=== PATIENT | female | born 1960 | race Caucasian/White ===

== ENCOUNTER 2018-10-19 12:56 | Emergency (ER) | payer MEDICARE ==
[~2018-10-19 12:56] MED LIST: ISOVUE-370 76%-LOCM 1 ML ONE
[2018-10-19] MEDS ORDERED: Metoclopramide HCl 10 MG/2 ML VIAL ONE (13:27)
[2018-10-19 13:53] LABS: Hemoglobin 13.7 g/dL (12.0-16.0); Mean Corpuscular HGB CONC 34.1 g/dL (32.0-36.0); Mean Corpuscular Hemoglobin 34.5 pg (27.0-31.0); Mean Platelet Volume 7.7 fL (7.4-10.4); Platelet Count 170 thou/uL (130-400); RBC Distribution Width 12.1 % (11.5-14.5); Red Blood Cell (RBC) Count 3.97 mill/uL (4.20-5.40); White Blood Cell (WBC) Count 6.2 thou/uL (4.8-10.8)
[2018-10-19 14:07] LABS: ALT (SGPT) 133 U/L (8-55); AST (SGOT) 218 U/L (5-34); Albumin 3.9 g/dL (3.5-5.0); Alkaline Phosphatase 205 U/L (40-150); Anion Gap 9 mmol/L (10-20); BUN (Urea Nitrogen) 14 mg/dL (9.8-20.1); Bilirubin, Total 0.3 mg/dL (0.2-1.2); Calc. Creatinine Clearance 0 mL/min (70-130); Calcium 9.3 mg/dL (7.8-10.44); Carbon Dioxide 26 mmol/L (22-29); Chloride 110 mmol/L (98-107); Estimated GFR-MDRD 53; Globulin 2.8 g/dL (2.4-3.5); Glucose 89 mg/dL (70-105); Potassium 4.1 mmol/L (3.5-5.1); Protein, Total 6.7 g/dL (6.0-8.3); Sodium 141 mmol/L (136-145)
[2018-10-19 14:11] LABS: Band 1 % (5-11); Eosinophils 1 % (0-10); Lymphocytes 40 % (21-51); MDiff Complete? YES; Monocytes 4 % (0-10); Neutrophil 53 % (42-75); Platelet Morphology Comment Appears Adequate; RBC Morphology Normal
[2018-10-19 14:14] LABS: Acetaminophen Less than 6.0 mcg/mL (10.0-30.0); Alcohol Less than 10 mg/dL (Less than 10); Salicylate Less than 8.0 mg/dL (15.0-30.0)
[2018-10-19 14:39] LABS: Amphetamine Not Detected (NotDetected); Barbiturates Screen Not Detected (NotDetected); Benzodiazepine Screen Detected (NotDetected); Cocaine Metabolite Screen Not Detected (NotDetected); Medtox Control Line Valid? VALID (VALID); Medtox Reader # READER 4; Methadone Not Detected (NotDetected); Methamphetamine Not Detected (NotDetected); Opiate Screen Detected (NotDetected); Oxycodone Screen Not Detected (NotDetected); Phencyclidine (PCP) Not Detected (NotDetected); THC/Cannabinoid Screen Not Detected (NotDetected); Tricyclic Screen Not Detected (NotDetected)
--- NOTE | 2018-10-19 14:52 | CT ---
CT CERVICAL SPINE NONCONTRAST: DATE: 10/19/2018 HISTORY: cervical trauma FINDINGS: There are no jumped or perched facets. There is no evidence of acute fracture. The vertebral body hei ghts are maintained. There is no prevertebral soft tissue swelling. There are degenerative disc changes and facet osteoarthrosis. 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 Also multilevel high-grade bilateral neural foraminal stenosis, including severe. IMPRESSION: 1) Cervical spondylosis. 2) no evidence of acute fracture or acute traumatic subluxation.
--- NOTE | 2018-10-19 14:55 | CT ---
CT BRAIN WITHOUT IV CONTRAST: HISTORY: Injury following syncope/collapse. Headache. COMPARISON: 10/17/2018 FINDINGS: No focal mass or midline shift. No intraaxial or extraaxial hemorrhage. The sinuses and mastoids ar e clear of acute process. IMPRESSION: No significant acute intracranial process. POS: OFF
--- NOTE | 2018-10-19 15:08 | CT ---
CT angiogram thorax with contrast: (CTA pulmonary angiogram) HISTORY: 58-year-old female status post syncope and collapse TECHNIQUE: IV injection of iodinated contrast. Scan acquisition timing attempted to coincide with iodinated contrast bolus reaching maximal density in pulmonary arteries. 3-D MIP reconstructions. FINDINGS: No pulmonary thromboembolism. No thoracic aortic aneurysm or dissection. Approximately 20-30% of the stomach has herniated into the mediastinum. No pleural effusion or pneumothorax. Prominent interstitial markings diffusely. Numerous scattered tiny subpleural blebs. Moderate cluster of air cysts/blebs in the lateral aspect of right upper lobe. Nonspecific groundglass changes in the dependent, posterior aspects of the superior segments of bilat eral lower lobes, left greater than right, and to a lesser degree at posterior dependent aspects of bilateral upper lobes. IMPRESSION: 1. No pulmonary thromboembolism. 2. Nonspecific diffuse changes of the lungs, at least some of which are chronic, including probable p araseptal emphysema.
[2018-10-19] MEDS ORDERED: Magnesium 2 GM/50 ML BAG (IN WATER) ONE (15:09)
[2018-10-19] MEDS ORDERED: methylPREDNISolone Sod Succ/PF 125 MG/2 ML VIAL ONE (15:09)
[2018-10-19] MEDS ORDERED: Lorazepam 1 MG TAB PO SCH (15:30)
[2018-10-19] MEDS ORDERED: Lorazepam 2 MG/ML VIAL ONE (16:04)
[2018-10-19] MEDS ORDERED: Lorazepam 1 MG TAB ONE (16:06)
[2018-10-19] MEDS ORDERED: diphenhydrAMINE 50 MG/ML VIAL IVP SCH (16:15)
[2018-10-19] MEDS ORDERED: SODIUM CHLORIDE 0.9% IVPB SCH (16:15)
[2018-10-19] MEDS ORDERED: VALPROATE SODIUM IVPB SCH (16:15)
== END 2018-10-19 16:38 | disposition home or self-care (01) ==
LOC: ERS 12:56
DX: S06.0X9A Concussion with loss of consciousness of unspecified duration, initial encounter (principal); R55 Syncope and collapse; F41.9 Anxiety disorder, unspecified; F17.210 Nicotine dependence, cigarettes, uncomplicated; G43.909 Migraine, unspecified, not intractable, without status migrainosus; W19.XXXA Unspecified fall, initial encounter
CPT/HCPCS: 36415; 70450; 71275; 72125; 80053; 80306; 80307; 84484; 85025; 85379; 93005; 94760; 96365; 96367; 96375; J2060; J2765; J2930; J3475; J3490; Q9966

== ENCOUNTER 2020-04-23 12:22 | Inpatient (IN) | payer MEDICARE ==
[~2020-04-23 12:22] MED LIST changes: +Calcium Chloride 1 GM/10 ML Abboject SYRINGE ONE; -ISOVUE-370 76%-LOCM 1 ML ONE; +Lidocaine 1% PF 5 ML VIAL ONE; +PHENYLEPHRINE-NS 100 MCG/ML 10 ML SYRINGE ONE; +PROPOFOL 200 MG/20 ML VIAL ONE; +ePHEDrine 50 MG/ML VIAL ONE
[2020-04-23] MEDS ORDERED: Fentanyl 100 MCG/2 ML VIAL ONE ×4 (12:38→21:48)
[2020-04-23] MEDS ORDERED: Nicotine 14 MG PATCH ONE (12:38)
[2020-04-23 13:17] LABS: INR-International Normal Ratio 0.9; PTT 29.2 sec (22.9-36.1); Prothrombin Time 12.2 sec (12.0-14.7)
--- NOTE | 2020-04-23 13:17 | RAD ---
EXAM: Single view of the chest HISTORY: Preoperative radiograph with finger infection COMPARISON: 03/22/2012 FINDINGS: Single view of the chest shows a normal sized cardiomediastinal silhouette. Slight increas ed interstitial lung markings are seen in the lung bases. There is no evidence of consolidation, mass, or pleural effusion. No acute osseous abnormality. IMPRESSION: No evidence of acute cardiopulmonary disease
[2020-04-23] MEDS ORDERED: Boostrix 0.5 ML (Tdap) VIAL ONE (13:35)
[2020-04-23 16:07] LABS: SARS-CoV-2 NAA Rapid Test Not Detected (NotDetected)
[2020-04-23] MEDS ORDERED: Morphine 4 MG/ML VIAL SLOW IVP PRN (16:07)
[2020-04-23 16:10] VITALS: BMI 33.6
[2020-04-23] MEDS ORDERED: Ondansetron PF 4 MG/2 ML Vial IVP PRN (16:15)
[2020-04-23] MEDS ORDERED: D5 1/2 NS w/20 mEq KCL 1,000 ML IV SCH (16:15)
[2020-04-23] MEDS ORDERED: Ondansetron ODT 4 MG TAB SL PRN (16:15)
[2020-04-23] MEDS ORDERED: Meperidine HCl/PF 25 MG/ML VIAL IM PRN (17:29)
[2020-04-23] MEDS ORDERED: Promethazine HCl 25 MG/ML VIAL IM PRN (17:30)
[2020-04-23] MEDS: Morphine 2 MG/ML VIAL SLOW IVP PRN (17:55)
[2020-04-23] MEDS ORDERED: Sodium Chloride 0.9% 30 ML ONE (19:16)
[2020-04-23] MEDS ORDERED: Bupivacaine PF 0.5% 30 ML VIAL ONE (19:16)
[2020-04-23] MEDS ORDERED: Bacitracin Zinc Ointment 30 gm TUBE ONE (19:16)
[2020-04-23] MEDS ORDERED: Thrombin 5000 UNITS/5 ML VIAL ONE (20:52)
[2020-04-23] MEDS ORDERED: Milk Of Magnesia 30 ML UDCUP PO PRN (21:33)
[2020-04-23] MEDS ORDERED: Acetaminophen 325 MG TAB PO PRN (21:33)
[2020-04-23] MEDS ORDERED: HYDROcodone/Acetaminophen 5/325 mg Tablet PO PRN (21:33)
[2020-04-23] MEDS ORDERED: Ondansetron PF 4 MG/2 ML Vial SLOW IVP PRN (21:33)
[2020-04-23] MEDS ORDERED: traMADol HCl 50 MG TAB PO PRN (21:33)
[2020-04-23] MEDS ORDERED: Communication Order-Pharmacy FS SCH (21:45)
[2020-04-23] MEDS ORDERED: TETANUS AND DIPHTHERIA TOX/PF 0.5 ML DISP.SYRIN IM SCH (21:45)
[2020-04-23] MEDS: Ampicillin/Sulbactam 3 GM in Sodium Chloride 0.9% 100 ML IVPB SCH (22:48)
[2020-04-24] MEDS: Morphine 2 MG/ML VIAL SLOW IVP PRN (01:26)
--- NOTE | 2020-04-24 02:30 | OP ---
DATE OF PROCEDURE: 04/23/2020 PREOPERATIVE DIAGNOSES: Parrot bite abscess with necrosis, left middle finger involving all layers of the skin and subcutaneous fat down to but not including bone, joint, and extensor mechanism. POSTOPERATIVE DIAGNOSES: Parrot bite abscess with necrosis, left middle finger involving all layers of the skin and subcutaneous fat down to but not including bone, joint, and extensor mechanism. PROCEDURE PERFORMED: Debridement of necrotic wound, left middle finger. SPECIMEN: Yes; mycobacterium avium culture, mycobacterial stain, and aerobic and anaerobic culture. ESTIMATED BLOOD LOSS: 10 mL. TOURNIQUET TIME: 15 minutes. FINDINGS: The entire area of the abscess had completely destroyed the skin left it with boggy subcutaneous fat, which had to be from the extensor mechanism, which had its paratenon involved and the abscess cavities deepest level. INDICATION: The patient reports she was scratched by her own parrot approximately four days prior because she was involved in a parrot flight instruction with her own parrot. DESCRIPTION OF PROCEDURE: After successful general LMA technique, the limb was prepped and draped. I gave her 10 mL of 0.5% Marcaine block prior to inflated tourniquet and exsanguinated the limb. We then outlined an area, where she had just mosley white mucopurulent skin subcutaneous tissue and fat some slightly irritated, but it is still intact to the lysed skin and made a Aspen-type incision at this point. We had to go approximately 1 cm proximal to the erythema as to localize the junction of the involved fat and the abscess and the normal extensor mechanism. Once we had done this proximally, we then used a Baraga blade to dissect the abscess cavity off the extensor mechanism and this paratenon was intact. No evidence of joint involvement clinically before in the operating room or so. Once we completely debrided this layer using combination of tenotomy scissors and Baraga blade in an excisional technique and went down, but did not the joint, we lifted all the tissue out, trimmed her remaining radial and ulnar dorsal skin edge of all inflamed boggy fat and then released the tourniquet. All tissue was bleeding. We then irrigated with 3 L normal saline and Pulsavac pressure, used thrombin-soaked Gelfoam, obtained hemostasis, afterwards we placed her in a wet-to-dry dressing over the thrombin-soaked Gelfoam with Kerlix and appropriate Coban tape. She had excellent pink circulation afterwards. Job ID: [id number]
[2020-04-24] MEDS: Morphine 4 MG/ML VIAL SLOW IVP PRN ×3 (08:08→16:09)
[2020-04-24] MEDS ORDERED: Aspirin 81 mg Enteric Coated Tablet PO SCH (09:00)
[2020-04-24] MEDS: Ampicillin/Sulbactam 3 GM in Sodium Chloride 0.9% 100 ML IVPB SCH (09:59)
[2020-04-24 16:16] VITALS: BP 121/87; TEMP 97.9
== END 2020-04-24 18:17 | disposition home or self-care (01) | DRG 580 ==
LOC: ERS 12:22 → T4-A 12:55
PROVIDERS: ADMIT Orthopaedic Surgery Hand Surgery; ATTEND Orthopaedic Surgery Hand Surgery
PROC: 0JBK0ZZ Excision of Left Hand Subcutaneous Tissue and Fascia, Open Approach (ICD-10-PCS; principal; 2020-04-23)
DX: L02.512 Cutaneous abscess of left hand (principal); I96 Gangrene, not elsewhere classified; Z20.828 Contact with and (suspected) exposure to other viral communicable diseases; I10 Essential (primary) hypertension; J44.9 Chronic obstructive pulmonary disease, unspecified; G40.909 Epilepsy, unspecified, not intractable, without status epilepticus; F17.210 Nicotine dependence, cigarettes, uncomplicated; Z79.899 Other long term (current) drug therapy
CPT/HCPCS: 36415; 71045; 85610; 85652; 85730; 86140; 87070; 87116; 87205; 87206; 90471; 90715; 93005; 96374; J0295; J0744; J2270; J2704; J3010; J3480; J3490; S0020; U0002

== ENCOUNTER 2020-05-01 11:55 | Outpatient (CLI) | payer MEDICARE ==
[2020-05-02 03:10] LABS: SARS-CoV-2 MS2 Positive; SARS-CoV-2 N Gene Negative; SARS-CoV-2 S Gene Negative; SARS-CoV-2 by NAA Not Detected (NotDetected); SARS-CoV-2 orf1ab Negative
== END 2020-05-01 11:56 | disposition home or self-care (01) ==
LOC: LABBT 11:55
PROVIDERS: ATTEND Emergency Medicine
DX: Z01.812 Encounter for preprocedural laboratory examination (principal); L02.511 Cutaneous abscess of right hand; Z20.828 Contact with and (suspected) exposure to other viral communicable diseases
CPT/HCPCS: 87635; U0003

== ENCOUNTER 2020-05-03 13:51 | Day surgery (SDC) | payer MEDICARE ==
[2020-05-02 11:01] VITALS: BMI 31.8
[~2020-05-03 13:51] MED LIST changes: -Calcium Chloride 1 GM/10 ML Abboject SYRINGE ONE; +Dexamethasone 20 MG/5 ML VIAL ONE; +Ondansetron PF 4 MG/2 ML Vial ONE; -ePHEDrine 50 MG/ML VIAL ONE
[2020-05-03] MEDS ORDERED: Fentanyl 100 MCG/2 ML VIAL ONE ×2 (17:47→19:34)
[2020-05-03] MEDS ORDERED: Midazolam HCl 2 mg/2 ml Vial ONE (17:47)
[2020-05-03] MEDS ORDERED: Bupivacaine PF 0.5% 30 ML VIAL ONE (17:49)
[2020-05-03] MEDS ORDERED: Sodium Chloride 0.9% 10 ML ONE (17:50)
[2020-05-03] MEDS ORDERED: Bacitracin Zinc Ointment 30 gm TUBE ONE (17:50)
[2020-05-03] MEDS ORDERED: Mineral Oil Sterile 10ML 10 ML UDCUP ONE ×2 (17:58→18:58)
[2020-05-03] MEDS ORDERED: Thrombin 5000 UNITS/5 ML VIAL ONE (18:51)
[2020-05-03] MEDS ORDERED: HYDROcodone/Acetaminophen 5/325 mg Tablet ONE (19:53)
--- NOTE | 2020-05-06 14:36 | OP ---
DATE OF PROCEDURE: 05/03/2020 PREOPERATIVE DIAGNOSIS: Right middle finger x 2.0 cm wound. POSTOPERATIVE DIAGNOSIS: Right middle finger x 2.0 cm wound. PROCEDURE PERFORMED: Debridement of wound down to including the fascia, intermediate depth 2.5 cm, right middle finger full-thickness skin graft from the right thigh. FINDINGS: Paratenon intact over the 1 cm long area of exposed tendon. Remaining was all fat and granulation tissue. COMPLICATIONS: None. INDICATIONS: Patient returned for staged wound management, now right middle finger wound has had VAC dressings, now prepared with cover portion of the tendon having for graft. DESCRIPTION OF PROCEDURE: After successful general endotracheal anesthesia, the limb prepped and draped. She received augmentation with right middle finger block, first 10 mL of 0.5% Marcaine pre-incision and then after the graft, another 10 mL at the same site. We then irrigated the wound, debrided the wound edges and the skin from the subcutaneous tissue. The paratenon was intact over the extensor mechanisms. Thus, we felt the skin graft would heal. We placed a moist dressing here, went to the ipsilateral right thigh. I harvested a 6 x 2 cm split-thickness skin graft, then meshed it to be of the appropriate size to cover this wound. A total of 30 mL was given including the donor site of Marcaine for pain relief. The graft was meshed 1 to 1.5, then placed over the wound area in excellent fashion with jeovany, a bolster, bacitracin Adaptic, 4x4s, and mineral oil, and then a bulky dressing was applied. The patient then left the operating room without evidence of anesthetic or operative complication. Job ID: [id number]
== END 2020-05-03 20:30 | disposition home or self-care (01) ==
LOC: SDC 13:51
PROVIDERS: ATTEND Orthopaedic Surgery Hand Surgery
PROC: 0HXFXZZ Transfer Right Hand Skin, External Approach (ICD-10-PCS; principal; 2020-05-03)
DX: S61.252A Open bite of right middle finger without damage to nail, initial encounter (principal); L02.511 Cutaneous abscess of right hand; Z79.2 Long term (current) use of antibiotics; Z79.899 Other long term (current) drug therapy; Z88.6 Allergy status to analgesic agent; W61.01XA Bitten by parrot, initial encounter
CPT/HCPCS: J0690; J1100; J2250; J2405; J2704; J3010; J3490; S0020

== ENCOUNTER 2020-06-11 08:07 | Outpatient (CLI) | payer MEDICARE ==
[2020-06-11 11:32] LABS: Bilirubin Neg (Negative); Blood, Urine Negative (Negative); Clarity Clear (Clear); Glucose, Urine (Dipstick) Normal (Negative); Ketone, Urine Negative (Negative); Leukocyte Negative (Negative); Nitrite Negative (Negative); Protein, Urine (Dipstick) Negative (Neg-Trace); Specific Gravity, Urine 1.015 (1.002-1.036); Urobilinogen Normal mg/dL (Less than 2)
[2020-06-11 11:34] LABS: #Basophils 0.1 10x3/uL (0.0-0.2); #Eosinphils 0.2 10x3/uL (0.0-0.5); #Monocytes 0.5 10x3/uL (0.0-1.1); #Neutrophils 4.3 10x3/uL (1.5-8.4); %Basophils 0.7 % (0.0-2.0); %Eosinophils 1.9 % (0.0-6.0); %Lymphocytes 39.8 % (18.0-47.0); %Monocytes 6.2 % (0.0-10.0); %Neutrophils 51.2 % (40.0-75.0); Mean Corpuscular Hemoglobin 33.5 PG (27.0-33.0); Mean Corpuscular Volume 104.8 fl (80.0-100.0); Platelet Count 193 10x3/uL (130-400); RBC Distribution Width 13.2 % (11.5-14.5); Red Blood Cell (RBC) Count 4.18 10x6/uL (3.90-5.20); White Blood Cell (WBC) Count 8.4 10x3/uL (4.5-11.0)
[2020-06-11 12:13] LABS: Bacteria/HPF Rare-Few HPF (None Seen); RBC/HPF 0-3 HPF (0-3); WBC/HPF 0-3 HPF (0-3)
[2020-06-12 07:20] LABS: SARS-CoV-2 MS2 Positive; SARS-CoV-2 N Gene Negative; SARS-CoV-2 S Gene Negative; SARS-CoV-2 by NAA Not Detected (NotDetected); SARS-CoV-2 orf1ab Negative
== END 2020-06-11 08:08 | disposition home or self-care (01) ==
LOC: LABBT 08:07
PROVIDERS: ATTEND Orthopaedic Surgery Hand Surgery
DX: Z01.818 Encounter for other preprocedural examination (principal); L02.511 Cutaneous abscess of right hand; Z20.822 Contact with and (suspected) exposure to COVID-19
CPT/HCPCS: 81001; 85025; 93005; U0003; 87635; 93010

== ENCOUNTER 2020-06-14 08:02 | Day surgery (SDC) | payer MEDICARE ==
[2020-06-12 11:38] VITALS: BMI 31.8
[2020-06-14] MEDS ORDERED: Ketorolac Tromethamine 30 MG/ML VIAL ONE (09:04)
[2020-06-14] MEDS ORDERED: Lidocaine 1% PF 5 ML VIAL ONE (09:04)
[2020-06-14] MEDS ORDERED: PHENYLEPHRINE-NS 100 MCG/ML 10 ML SYRINGE ONE ×2 (09:04→12:08)
[2020-06-14] MEDS ORDERED: PROPOFOL 200 MG/20 ML VIAL ONE (09:04)
[2020-06-14] MEDS ORDERED: ePHEDrine 50 MG/ML VIAL ONE (09:04)
[2020-06-14] MEDS ORDERED: Dexamethasone 20 MG/5 ML VIAL ONE (09:04)
[2020-06-14] MEDS ORDERED: Ondansetron PF 4 MG/2 ML Vial ONE ×2 (09:04→12:43)
[2020-06-14] MEDS ORDERED: Bupivacaine PF 0.5% 30 ML VIAL ONE (10:46)
[2020-06-14] MEDS ORDERED: Bacitracin Zinc Ointment 30 gm TUBE ONE (10:47)
[2020-06-14] MEDS ORDERED: Sodium Chloride 0.9% 0 ML ONE (10:47)
[2020-06-14] MEDS ORDERED: Fentanyl 100 MCG/2 ML VIAL ONE ×4 (10:57→13:18)
[2020-06-14] MEDS ORDERED: Phenylephrine 1% Nasal Spray 15 ML BOT ONE (12:07)
[2020-06-14] MEDS ORDERED: Phenylephrine 0.25% Nasal Spray 15 ML BOT ONE (12:08)
--- NOTE | 2020-06-17 06:39 | OP ---
DATE OF PROCEDURE: 06/14/2020 PREOPERATIVE DIAGNOSIS: Right hand nonhealing wound distal aspect of the proximal phalanx dorsal right middle finger all way to the level of the insertion of the extensor mechanism. FINDINGS: Exposed tendon over 2/3 of this area. No gross infection. PROCEDURES PERFORMED: 1. Debridement of wound down to depth. 2. Application of 2 x 1 cm Integra graft, right middle finger distal proximal phalanx and PIP joint dorsally. TOURNIQUET TIME: 4 minutes. ESTIMATED BLOOD LOSS: Less than 5 mL. INTEGRA GRAFT APPLIED: Yes. INDICATIONS FOR PROCEDURE: The patient with open wound where we attempted to get it to heal with skin graft alone and after infection. Skin graft allowed almost half to heal, but we felt that the remaining portion did not heal might be because it was exposed tendon underneath. This was indeed the fact. INJECTABLE: 20 mL of 0.5% Marcaine, 10 given before the graft and placing 10 after. DESCRIPTION OF PROCEDURE: After successful anesthesia listed above, general LMA technique, the patient had 10 mL of 0.5% Marcaine block given after prep and draping. We waited 5 minutes and then began with an exsanguination of limb and inflated the tourniquet to 250 mmHg pressure. 360 degree circumferential unroofing revealed the patient had some remnants of sagittal bands and had the extensor tendon, but there was no coverage. No gross infection was seen. We debrided to include using Rome blade, tenotomy scissors, Adson, and hemostats. After irrigation, the tourniquet was deflated and there was excellent flow, but again the tendon was exposed, so we applied Integra graft made to make the 2 cm long x 1.5 cm wide incision covered completely with Integra and and it was placed on with small jeovany with the finger in full extension at the PIP joint and then this was the position it was held intact. We then obtained hemostasis, placed a bacitracin Adaptic, then bacitracin alone over this and placing then a Kerlix and Coban environment. The patient left the operating room without evidence of anesthetic or operative complication. Job ID: [id number]
== END 2020-06-14 15:00 | disposition home or self-care (01) ==
LOC: SDC 08:02
PROVIDERS: ATTEND Orthopaedic Surgery Hand Surgery
PROC: 0JBJ0ZZ Excision of Right Hand Subcutaneous Tissue and Fascia, Open Approach (ICD-10-PCS; principal; 2020-06-14)
PROC: 0HRFX74 Replacement of Right Hand Skin with Autologous Tissue Substitute, Partial Thickness, External Approach (ICD-10-PCS; 2020-06-14)
DX: S61.252A Open bite of right middle finger without damage to nail, initial encounter (principal); E78.00 Pure hypercholesterolemia, unspecified; I10 Essential (primary) hypertension; M81.0 Age-related osteoporosis without current pathological fracture; M19.90 Unspecified osteoarthritis, unspecified site; F17.200 Nicotine dependence, unspecified, uncomplicated; Z79.899 Other long term (current) drug therapy; Z88.6 Allergy status to analgesic agent; Z88.8 Allergy status to other drugs, medicaments and biological substances; W61.01XA Bitten by parrot, initial encounter
CPT/HCPCS: 11043; 15120; C9363; J0690; J1100; J1885; J2405; J2704; J3010; J3490; S0020

== ENCOUNTER 2020-07-08 10:50 | Outpatient (CLI) | payer MEDICARE ==
--- NOTE | 2020-07-08 12:57 | CT ---
EXAM: CT chest without contrast per low-dose cancer screening protocol HISTORY: History of smoking and nicotine dependence. Current smoker for 50 years COMPARISON: CTA chest 10/19/2018 TECHNIQUE: Multiple contiguous axial images were obtained in a CT of the chest without contrast per l ow-dose cancer screening protocol. Sagittal and coronal reformats were performed. FINDINGS: Pulmonary nodules: No suspicious pulmonary nodules are seen. No focal infiltrates are seen. Emphysema tous changes are seen in the lungs. Pleural space: No pneumothorax or pleural effusion are seen. Heart: The heart is normal in size. Mediastinum: No hilar or mediastinal lymphadenopathy appreciated on this limited noncontrast examinat ion. There is a large hiatal hernia. Bones: No acute abnormality. Visualized subdiaphragmatic structures: The patient is status post cholecystectomy.. IMPRESSION: 1. Lung RADS category 1-negative. 2. Large hiatal hernia
== END 2020-07-08 10:51 | disposition home or self-care (01) ==
LOC: BICCT 10:50
PROVIDERS: ATTEND Internal Medicine Hematology & Oncology
DX: Z12.2 Encounter for screening for malignant neoplasm of respiratory organs (principal); F17.218 Nicotine dependence, cigarettes, with other nicotine-induced disorders; K44.9 Diaphragmatic hernia without obstruction or gangrene
CPT/HCPCS: 71271

== ENCOUNTER 2020-07-19 07:30 | Day surgery (SDC) | payer MEDICARE ==
[2020-07-18 10:35] VITALS: BMI 30.9
[2020-07-19] MEDS ORDERED: PHENYLEPHRINE-NS 100 MCG/ML 10 ML SYRINGE ONE (09:26)
[2020-07-19] MEDS ORDERED: Lidocaine 1% PF 5 ML VIAL ONE (09:26)
[2020-07-19] MEDS ORDERED: Ondansetron PF 4 MG/2 ML Vial ONE (09:26)
[2020-07-19] MEDS ORDERED: PROPOFOL 200 MG/20 ML VIAL ONE (09:26)
[2020-07-19] MEDS ORDERED: Dexamethasone 20 MG/5 ML VIAL ONE (09:26)
--- NOTE | 2020-07-19 09:47 | NM ---
Exam: Nuclear medicine lymphoscintigraphy HISTORY: Right breast cancer TECHNIQUE: Patient administered 0.416 mm of technetium 99m filtered sulfur colloid subcutaneously. FINDINGS: On the one-hour delayed images, there appears to be focal uptake of radiotracer in the right axilla, likely representing a sentinel lymph node. Focal uptake is best appreciated lateral projection. IMPRESSION: Right axillary sentinel lymph node
[2020-07-19] MEDS ORDERED: Fentanyl 100 MCG/2 ML VIAL ONE ×3 (11:20→14:52)
[2020-07-19] MEDS ORDERED: XYLOCAINE 2%-EPI 1:100,000 20 ML VIAL ONE (11:43)
[2020-07-19] MEDS ORDERED: Bupivacaine 0.25% HCL 30 ML VIAL ONE (11:43)
[2020-07-19] MEDS ORDERED: Isosulfan Blue 50 MG/5 ML VIAL ONE (11:43)
[2020-07-19] MEDS ORDERED: Phenylephrine 10 MG/ML VIAL ONE ×2 (12:48→13:49)
--- NOTE | 2020-07-20 18:06 | OP ---
DATE OF PROCEDURE: 07/19/2020 PREOPERATIVE DIAGNOSIS: Right breast cancer. POSTOPERATIVE DIAGNOSIS: Right breast cancer. OPERATION PERFORMED: Right breast ultrasound-guided needle localization, needle-localized lumpectomy, right axillary sentinel lymph node mapping and biopsy. ANESTHESIA: General endotracheal. INDICATIONS: The patient is a 60-year-old female. She has a palpable malignancy in the upper right breast at about the 11:30 radian. After discussing options with her, she has elected to pursue breast conserving surgery. DESCRIPTION OF OPERATION: Informed consent was obtained. The patient underwent preoperative lymphoscintigraphy, which documented right axillary sentinel lymph nodes. She was taken to the operating room, where general anesthesia was obtained with the patient in supine position. Right breast and axilla were prepped with ChloraPrep and draped in sterile fashion. 3 mL of Isosulfan blue was infiltrated in the right periareolar subdermal tissue and massaged for 5 minutes. Attention was then turned to the axilla. Local anesthetic was infiltrated using 0.25% Marcaine with epinephrine. A transverse low axillary incision was created and dissection was carried through skin and subcutaneous tissue. The clavicle pectoral fascia was incised and dissection was carried deeply within the axilla. Utilizing the Neoprobe and tracing the blue dye, I was able to identify 3 separate sentinel lymph nodes. Each of these had radioactivity and two of them had blue dye. These were each dissected circumferentially and all investing lymphatics were divided between clamps and 3-0 silk ties. These were submitted for permanent pathology. Meticulous hemostasis was obtained within the wound. The wound was closed in layers with 3-0 and 4-0 Monocryl and Dermabond was placed externally. Attention was then turned to the breast. Ultrasound was utilized to jacque the exact location of the tumor on the skin in a grid type fashion. A localizing needle was then passed through the malignancy in a medial to lateral fashion passing through the center of the tumor. Local anesthetic was infiltrated using 0.25% Marcaine with epinephrine. A transverse incision was created based on the needle insertion site. Dissection was carried through skin and subcutaneous tissue. Flaps were raised in all four directions. The tissue into which the localizing wire entered was grasped. This was recognized to be a fairly deep tumor. I therefore began my dissection on the medial aspect, dissecting behind the wire down until I was underneath the tumor. I then very carefully dissected around the tumor utilizing intraoperative ultrasound to guide the margins. The specimen was then removed intact. There was no visible or palpable disease remaining within the breast. The specimen was oriented with sutures and passed off the field. Specimen mammography shows a clip present within the center of the lesion. Palpation and sonographic interrogation showed that I was fairly close on the posterior margin and I therefore decided to obtain an additional posterior margin to minimize the chance of requiring another surgery. I obtained a 4 mm thickness of posterior margin, which I also oriented with sutures and submitted to Pathology. Meticulous hemostasis was obtained within the wound. It was irrigated. It was then closed in layers with 3-0 and 4-0 Monocryl suture. Additional local anesthetic was then instilled during closure. Dermabond was placed externally. There were no complications with either portion of the procedure. Blood loss was negligible. The patient tolerated the procedure well and was taken to recovery room in stable condition. Job ID: [id number]
== END 2020-07-19 16:20 | disposition home or self-care (01) ==
LOC: NM 07:30
PROVIDERS: ATTEND Specialist
PROC: 0HBT0ZZ Excision of Right Breast, Open Approach (ICD-10-PCS; principal; 2020-07-19)
PROC: 07B50ZX Excision of Right Axillary Lymphatic, Open Approach, Diagnostic (ICD-10-PCS; 2020-07-19)
DX: C50.411 Malignant neoplasm of upper-outer quadrant of right female breast (principal); E78.00 Pure hypercholesterolemia, unspecified; I10 Essential (primary) hypertension; M81.0 Age-related osteoporosis without current pathological fracture; M19.90 Unspecified osteoarthritis, unspecified site; F17.200 Nicotine dependence, unspecified, uncomplicated; Z17.0 Estrogen receptor positive status [ER+]; Z79.899 Other long term (current) drug therapy; Z88.6 Allergy status to analgesic agent; Z88.8 Allergy status to other drugs, medicaments and biological substances
CPT/HCPCS: 19301; 38525; 38900; 76098; 78195; A9541; Q9968; 88307; 88342; J0690; J1100; J2370; J2405; J2704; J3010; S0020

== ENCOUNTER 2020-07-23 08:40 | Day surgery (SDC) | payer MEDICARE ==
[2020-07-12 14:04] VITALS: BMI 30.9
[2020-07-23] MEDS ORDERED: PHENYLEPHRINE-NS 100 MCG/ML 10 ML SYRINGE ONE (09:48)
[2020-07-23] MEDS ORDERED: Dexamethasone 20 MG/5 ML VIAL ONE (09:48)
[2020-07-23] MEDS ORDERED: Lidocaine 1% PF 5 ML VIAL ONE (09:48)
[2020-07-23] MEDS ORDERED: ePHEDrine 50 MG/ML VIAL ONE (09:48)
[2020-07-23] MEDS ORDERED: Ketorolac Tromethamine 30 MG/ML VIAL ONE (09:48)
[2020-07-23] MEDS ORDERED: Ondansetron PF 4 MG/2 ML Vial ONE (09:48)
[2020-07-23] MEDS ORDERED: PROPOFOL 200 MG/20 ML VIAL ONE (09:48)
[2020-07-23] MEDS ORDERED: Sodium Chloride 0.9% 10 ML ONE (10:10)
[2020-07-23] MEDS ORDERED: Thrombin 5000 UNITS/5 ML VIAL ONE (10:10)
[2020-07-23] MEDS ORDERED: Bacitracin Zinc Ointment 30 gm TUBE ONE (10:10)
[2020-07-23] MEDS ORDERED: Bupivacaine PF 0.5% 30 ML VIAL ONE (10:10)
[2020-07-23] MEDS ORDERED: Phenylephrine 10 MG/ML VIAL ONE (10:49)
[2020-07-23] MEDS ORDERED: Fentanyl 100 MCG/2 ML VIAL ONE ×3 (11:46→12:19)
[2020-07-23] MEDS ORDERED: HYDROcodone/Acetaminophen 5/325 mg Tablet ONE (12:52)
--- NOTE | 2020-07-24 08:03 | OP ---
DATE OF PROCEDURE: 07/23/2020 PREOPERATIVE DIAGNOSIS: Right middle finger 2 x 1.5 cm wound with Integra graft substitute covering the tendon. POSTOPERATIVE DIAGNOSIS: Right middle finger 2 x 1.5 cm wound with Integra graft substitute covering the tendon, with Integra graft covering the previous exposed tendon. PROCEDURE PERFORMED: Wound 2 x 1.5 cm full-thickness skin graft with donor from right antecubital fossa, closed primarily at the site. SPECIMENS: None. ESTIMATED BLOOD LOSS: 10 mL. TOURNIQUET TIME: None. Injected 10 mL of 0.5% Marcaine with no epi at each of the sites, antecubital site donor and the digit recipient site itself. FINDINGS: No infection. DESCRIPTION OF PROCEDURE: The patient had successful general endotracheal anesthesia. Time-out was done appropriately. We identified the finger and the site for donor source. We injected both sites with 10 mL of 0.5% Marcaine and waited 2 to 3 minutes before completely inspecting the area of the previous Integra graft, which showed to be intact, Integra deposit over the extensor tendon with no extensor tendon mechanism exposed at this time. The previous skin graft site was healing without alarm. The patient's passive motion was placed at -10 degrees today without undue change in color and we proceeded to the antecubital fossa. We previously injected and harvested an ellipse shape 2.2 x 1.5 cm graft. We pinned it all the way to the dermal epidermal junction and we placed it on with 4-corner bolster and suture technique using 4-0 nylon on each corner, running 6-0 chromic, bacitracin Adaptic, 4x4, with a bolster tied over the cotton ball. A bulky dressing was then applied after we closed the donor site with a running 4-0 Monocryl and a 4-0 nylon interrupted simple. The patient then left the operating room with soft tissue dressing and no evidence of anesthetic or operative complication. Job ID: [id number]
== END 2020-07-23 13:15 | disposition home or self-care (01) ==
LOC: SDC 08:40
PROVIDERS: ATTEND Orthopaedic Surgery Hand Surgery
PROC: 0HRFX73 Replacement of Right Hand Skin with Autologous Tissue Substitute, Full Thickness, External Approach (ICD-10-PCS; principal; 2020-07-23)
DX: S61.252A Open bite of right middle finger without damage to nail, initial encounter (principal); L02.511 Cutaneous abscess of right hand; F17.200 Nicotine dependence, unspecified, uncomplicated; E78.00 Pure hypercholesterolemia, unspecified; I10 Essential (primary) hypertension; M81.0 Age-related osteoporosis without current pathological fracture; M19.90 Unspecified osteoarthritis, unspecified site; C50.911 Malignant neoplasm of unspecified site of right female breast; Z17.0 Estrogen receptor positive status [ER+]; Z79.899 Other long term (current) drug therapy; Z88.6 Allergy status to analgesic agent; Z91.048 Other nonmedicinal substance allergy status; W61.01XA Bitten by parrot, initial encounter
CPT/HCPCS: J0690; J1100; J1885; J2370; J2405; J2704; J3010; J3490; S0020

== ENCOUNTER 2020-08-26 12:50 | Outpatient (CLI) | payer MEDICARE | END 2020-08-26 12:51 | disposition home or self-care (01) | LOC: ULT 12:50 | PROVIDERS: ATTEND Internal Medicine Hematology & Oncology | DX: Z51.11 Encounter for antineoplastic chemotherapy (principal); C50.111 Malignant neoplasm of central portion of right female breast; I08.3 Combined rheumatic disorders of mitral, aortic and tricuspid valves; Z79.899 Other long term (current) drug therapy | CPT/HCPCS: 36415; 80053; 82248; 83615; 84100; 84550; 93306 ==

== ENCOUNTER 2020-08-28 10:26 | Outpatient (CLI) | payer MEDICARE ==
[2020-07-11 12:13] LABS: #Eosinphils 0.1 10x3/uL (0.0-0.5); #Monocytes 0.5 10x3/uL (0.0-1.1); %Basophils 0.3 % (0.0-2.0); %Eosinophils 1.8 % (0.0-6.0); %Lymphocytes 38.4 % (18.0-47.0); %Monocytes 6.9 % (0.0-10.0); %Neutrophils 52.3 % (40.0-75.0); Hemoglobin 14.1 g/dL (12.0-15.5); Mean Corpuscular HGB CONC 32.1 g/dL (32.0-36.0); Mean Corpuscular Hemoglobin 33.3 pg (27.0-33.0); Mean Corpuscular Volume 103.5 fl (81.6-98.3); Mean Platelet Volume 9.7 fl (7.4-10.4); Platelet Count 175 10x3/uL (150-450); RBC Distribution Width 12.6 % (11.5-14.5); Red Blood Cell (RBC) Count 4.24 10x6/uL (3.90-5.03); White Blood Cell (WBC) Count 7.7 10x3/uL (3.5-10.5)
[2020-07-11 12:19] LABS: Anion Gap 15 mmol/L (10-20); BUN (Urea Nitrogen) 18 mg/dL (9.8-20.1); Calc. Creatinine Clearance 0 mL/min (70-130); Calcium 9.4 mg/dL (7.8-10.44); Carbon Dioxide 28 mmol/L (23-31); Chloride 101 mmol/L (98-107); Glucose 96 mg/dL (80-115); Potassium 5.3 mmol/L (3.5-5.1); Sodium 139 mmol/L (136-145)
[2020-07-11 23:10] LABS: SARS-CoV-2 PCR by NAA Not Detected (NotDetected)
[2020-08-28 12:11] LABS: #Basophils 0.1 10x3/uL (0.0-0.2); #Eosinphils 0.2 10x3/uL (0.0-0.5); #Monocytes 0.5 10x3/uL (0.0-1.1); #Neutrophils 4.9 10x3/uL (1.5-8.4); %Basophils 0.6 % (0.0-2.0); %Eosinophils 2.7 % (0.0-6.0); %Lymphocytes 36.7 % (18.0-47.0); %Neutrophils 53.7 % (40.0-75.0); Hemoglobin 13.2 g/dL (12.0-15.5); Mean Corpuscular HGB CONC 32.5 g/dL (32.0-36.0); Mean Corpuscular Hemoglobin 32.7 pg (27.0-33.0); Mean Corpuscular Volume 100.5 fl (81.6-98.3); Platelet Count 267 10x3/uL (150-450); RBC Distribution Width 13.4 % (11.5-14.5); Red Blood Cell (RBC) Count 4.04 10x6/uL (3.90-5.03)
[2020-08-28 12:15] LABS: Anion Gap 15 mmol/L (10-20); BUN (Urea Nitrogen) 20 mg/dL (9.8-20.1); Calc. Creatinine Clearance 0 mL/min (70-130); Carbon Dioxide 27 mmol/L (23-31); Chloride 100 mmol/L (98-107); Glucose 118 mg/dL (80-115); Potassium 4.4 mmol/L (3.5-5.1); Sodium 138 mmol/L (136-145)
[2020-08-28 18:01] LABS: SARS-CoV-2 PCR by NAA Not Detected (NotDetected)
== END 2020-08-28 10:27 | disposition home or self-care (01) ==
LOC: LABBT 10:26
PROVIDERS: ATTEND Specialist
DX: Z01.818 Encounter for other preprocedural examination (principal); Z20.822 Contact with and (suspected) exposure to COVID-19; C50.911 Malignant neoplasm of unspecified site of right female breast
CPT/HCPCS: 80048 ×2; 85025 ×2; 93005 ×2; U0003 ×2; U0005 ×2; 87635; 93010

== ENCOUNTER 2020-09-02 13:09 | Day surgery (SDC) | payer MEDICARE ==
[2020-08-29 12:35] VITALS: BMI 29.2
[2020-09-02] MEDS ORDERED: Acetaminophen 500 MG TAB ONE (13:28)
[2020-09-02] MEDS ORDERED: Fentanyl 100 MCG/2 ML VIAL ONE (13:43)
[2020-09-02] MEDS ORDERED: Midazolam HCl 2 mg/2 ml Vial ONE (13:44)
[2020-09-02] MEDS ORDERED: Famotidine/PF 20 mg/2ml Vial ONE (14:34)
[2020-09-02] MEDS ORDERED: PROPOFOL 60 ML ONE (14:35)
[2020-09-02] MEDS ORDERED: Lidocaine 1% w/Epinephrine 1:100K 20 ML VIAL ONE (14:36)
[2020-09-02] MEDS ORDERED: Bupivacaine 0.25% HCL 30 ML VIAL ONE (14:36)
[2020-09-02] MEDS ORDERED: Lidocaine 1% (PF) 30 ML VIAL ONE (14:38)
[2020-09-02] MEDS ORDERED: Lidocaine 1% PF 5 ML VIAL ONE (14:52)
[2020-09-02] MEDS ORDERED: PHENYLEPHRINE-NS 100 MCG/ML 10 ML SYRINGE ONE (14:52)
[2020-09-02] MEDS ORDERED: ePHEDrine 50 MG/ML VIAL ONE (14:52)
[2020-09-02] MEDS ORDERED: Ondansetron PF 4 MG/2 ML Vial ONE (14:52)
[2020-09-02] MEDS ORDERED: PROPOFOL 200 MG/20 ML VIAL ONE (14:52)
[2020-09-02] MEDS ORDERED: Metoclopramide HCl 10 MG/2 ML VIAL ONE (14:52)
[2020-09-02] MEDS ORDERED: HYDROcodone/Acetaminophen 5/325 mg Tablet ONE (16:46)
== END 2020-09-02 16:58 | disposition home or self-care (01) ==
LOC: SDC 13:09
PROVIDERS: ATTEND Specialist
PROC: 0JH63WZ Insertion of Totally Implantable Vascular Access Device into Chest Subcutaneous Tissue and Fascia, Percutaneous Approach (ICD-10-PCS; principal; 2020-09-02)
PROC: 02HV33Z Insertion of Infusion Device into Superior Vena Cava, Percutaneous Approach (ICD-10-PCS; 2020-09-02)
DX: C50.911 Malignant neoplasm of unspecified site of right female breast (principal); E78.00 Pure hypercholesterolemia, unspecified; I10 Essential (primary) hypertension; M81.0 Age-related osteoporosis without current pathological fracture; M19.90 Unspecified osteoarthritis, unspecified site; F17.210 Nicotine dependence, cigarettes, uncomplicated; Z17.0 Estrogen receptor positive status [ER+]; Z79.899 Other long term (current) drug therapy; Z88.6 Allergy status to analgesic agent; Z88.8 Allergy status to other drugs, medicaments and biological substances
CPT/HCPCS: 36561; 71045; C1788; J0690; J1642; J2001; J2250; J2405; J2704; J2765; J3010; J3490; S0020; S0028

== ENCOUNTER 2020-09-05 13:11 | Inpatient (IN) | payer MEDICARE ==
[2020-09-05] MEDS ORDERED: Norepinephrine 8 MG/0.9% NS 250 ML ONE (13:20)
[2020-09-05 13:40] LABS: Actual Bicarbonate (HCO3a) 16.7 mEq/L (22-28); Analyzer IN Cardio ER; Base Excess (BEa) -11.5 mEq/L (-2.0 to +3.0); CO2 Tension 46.9 mmHg (35.0-45.0); Carboxyhemoglobin (COHb) 2.8 gm% (0.0-3.0); Hemoglobin (Hb) 11.8 g/dL (12.0-16.0); O2 Tension (PaO2), arterial 67.3 mmHg (> 80.0); Potassium - ABG Lab 4.33 mmol/L (3.70-5.30)
[2020-09-05] MEDS ORDERED: Sodium Bicarb 50 MEQ/50 ML Abboject 8.4% SYRINGE ONE (13:46)
[2020-09-05 13:57] LABS: pH, Arterial 7.17 (7.35-7.45)
[2020-09-05 13:58] LABS: ALV-art Gradient 373.175 mmHg (0-20); Puncture Site RRA
[2020-09-05 14:18] LABS: Bacteria/HPF 4+ HPF (None Seen); Bilirubin Negative (Negative); Blood, Urine 3+ (Negative); Clarity Turbid (Clear); Glucose, Urine (Dipstick) Normal (Negative); Ketone, Urine Negative (Negative); Leukocyte Negative Leu/uL (Negative); Nitrite Negative (Negative); Protein, Urine (Dipstick) 100 mg/dL (Neg-Trace); Specific Gravity, Urine 1.023 (1.002-1.036); Squamous Epithelial 0-3 HPF (0-3); Urobilinogen Normal mg/dL (Less than 2); Yeast-Budding 2+ HPF (None Seen); pH, Urine 5.5 (5.0-9.0)
[2020-09-05 14:22] LABS: Hemoglobin 12.4 g/dL (12.0-16.0); Mean Corpuscular HGB CONC 32.4 g/dL (32.0-36.0); Mean Corpuscular Hemoglobin 33.8 pg (27.0-31.0); Mean Platelet Volume 8.7 fL (7.4-10.4); Platelet Count 131 thou/uL (130-400); RBC Distribution Width 12.9 % (11.5-14.5); Red Blood Cell (RBC) Count 3.66 mill/uL (4.20-5.40); White Blood Cell (WBC) Count 3.1 thou/uL (4.8-10.8)
[2020-09-05 14:39] LABS: ALT (SGPT) 144 U/L (8-55); AST (SGOT) 240 U/L (5-34); Albumin 2.8 g/dL (3.4-4.8); Alkaline Phosphatase 493 U/L (40-110); Anion Gap 25 mmol/L (10-20); BUN (Urea Nitrogen) 64 mg/dL (9.8-20.1); Calc. Creatinine Clearance 0 mL/min (70-130); Calcium 6.8 mg/dL (7.8-10.44); Carbon Dioxide 14 mmol/L (23-31); Chloride 103 mmol/L (98-107); Globulin 2.9 g/dL (2.4-3.5); Glucose 103 mg/dL (80-115); Potassium 5.1 mmol/L (3.5-5.1); Protein, Total 5.7 g/dL (5.8-8.1); Sodium 137 mmol/L (136-145)
[2020-09-05] MEDS ORDERED: cefTRIAXone\\ROCEPHIN 1 GM VIAL ONE (14:39)
[2020-09-05 14:41] LABS: SARS-CoV-2 NAA Rapid Test Not Detected (NotDetected)
[2020-09-05 14:42] LABS: Anisocytosis SLIGHT = 6-15 cells (100X) (0-5/hpf); Band 21 % (5-11); Lymphocytes 18 % (21-51); MDiff Complete? YES; Monocytes 9 % (0-10); Myelocyte 2 % (0-0); Neutrophil 50 % (42-75); Nucleated RBC 1 % (0); Platelet Morphology Comment Appears Adequate
[2020-09-05] MEDS ORDERED: Acetaminophen 325 MG TAB PER TUBE PRN (16:08)
[2020-09-05] MEDS ORDERED: Senokot S 8.6-50 MG TAB PER TUBE PRN (16:08)
[2020-09-05] MEDS ORDERED: Bisacodyl 10 MG SUPP PR PRN (16:08)
[2020-09-05] MEDS ORDERED: Ondansetron PF 4 MG/2 ML Vial IVP PRN (16:08)
[2020-09-05] MEDS ORDERED: Ventilator Sedation Protocol 1 EACH FS SCH (16:15)
[2020-09-05] MEDS ORDERED: Fentanyl BOLUS 250 ML IVPB PRN (16:30)
[2020-09-05] MEDS ORDERED: DISCONTINUE PREVIOUS NARCOTIC PAIN MEDICATIONS AND BENZODIAZEPINES FS SCH (16:30)
[2020-09-05] MEDS ORDERED: Morphine 2 MG/ML VIAL SLOW IVP PRN (16:30)
[2020-09-05] MEDS ORDERED: Propofol BOLUS 1,000 MG/100 ML VIAL IV PRN (16:30)
[2020-09-05] MEDS ORDERED: VANCOMYCIN 1.75 GM/350 ML BAG 1.75 GM in Premix Bag 1 BAG IVPB SCH (16:45)
[2020-09-05 17:24] LABS: Lactic Acid 1.6 mmol/L (0.5-2.2)
[2020-09-05] MEDS: Heparin 5,000 UNITS/ML VIAL SC SCH (21:34)
[2020-09-05] MEDS: Norepinephrine 8 MG/0.9% NS 250 ML IVPB PRN (21:55)
[2020-09-05] MEDS: Acetaminophen 650 MG Suppository PR PRN (22:23)
[2020-09-06] MEDS: Vasopressin 20 UNIT, Admixture Fee 1 EACH in Sodium Chloride 0.9% 50 ML IV SCH ×3 (00:19→18:47)
[2020-09-06] MEDS: Cefepime 1 GM in Sodium Chloride 0.9% 100 ML IVPB SCH ×2 (02:32→13:06)
[2020-09-06] MEDS: Norepinephrine 8 MG/0.9% NS 250 ML IVPB PRN ×4 (03:06→21:02)
[2020-09-06] MEDS ORDERED: Fentanyl CADD 100 ML ONE ×2 (03:59→22:58)
[2020-09-06 05:25] LABS: Hemoglobin 11.7 g/dL (12.0-16.0); Mean Corpuscular HGB CONC 32.3 g/dL (32.0-36.0); Mean Corpuscular Hemoglobin 32.7 pg (27.0-31.0); Mean Platelet Volume 9.2 fL (7.4-10.4); Platelet Count 94 thou/uL (130-400); Red Blood Cell (RBC) Count 3.57 mill/uL (4.20-5.40); White Blood Cell (WBC) Count 2.8 thou/uL (4.8-10.8)
[2020-09-06 05:30] LABS: Lactic Acid 1.3 mmol/L (0.5-2.2)
[2020-09-06 05:48] LABS: ALT (SGPT) 137 U/L (8-55); AST (SGOT) 256 U/L (5-34); Albumin 2.6 g/dL (3.4-4.8); Alkaline Phosphatase 559 U/L (40-110); Anion Gap 25 mmol/L (10-20); BUN (Urea Nitrogen) 82 mg/dL (9.8-20.1); Bilirubin, Total 0.7 mg/dL (0.2-1.2); Calc. Creatinine Clearance 24 mL/min (70-130); Calcium 6.1 mg/dL (7.8-10.44); Carbon Dioxide 14 mmol/L (23-31); Chloride 107 mmol/L (98-107); Globulin 3.1 g/dL (2.4-3.5); Glucose 136 mg/dL (80-115); MDiff Complete? YES; Potassium 5.5 mmol/L (3.5-5.1); Protein, Total 5.7 g/dL (5.8-8.1); Sodium 140 mmol/L (136-145)
[2020-09-06 05:49] LABS: Band 34 % (5-11); Lymphocytes 19 % (21-51); Metamyelocyte 1 % (0-0); Monocytes 2 % (0-10); Neutrophil 44 % (42-75); Nucleated RBC 1 % (0); Platelet Morphology Comment Appears Decreased
[2020-09-06 06:08] LABS: HBSAg Index 0.18 S/CO (0-0.99); Hep A IgM AB Non-Reactive (NonReactive); Hep A IgM S/CO 0.09 S/CO (0-0.79); Hep B Surf Ag Non-Reactive S/CO (NonReactive); Thyroid Stimulating Hormone 0.6045 uIU/mL (0.35-4.94)
[2020-09-06 06:15] LABS: HBCM Index 1.05 S/CO (0-0.79); Hep C IgG Ab Reflex HepC Qnt (NonReactive); Hep C Index 1.55 S/CO (0-0.79)
[2020-09-06 06:43] LABS: Hepatitis B Core IgM Abs Equivocal (NonReactive)
[2020-09-06 08:43] LABS: Actual Bicarbonate (HCO3a) 14.7 mEq/L (22-28); Base Excess (BEa) -11.3 mEq/L (-2.0 to +3.0); CO2 Tension 33.5 mmHg (35.0-45.0); Calcium, Ionized (arterial) 0.77 mmol/L (1.12-1.30); Carboxyhemoglobin (COHb) 2.7 gm% (0.0-3.0); Hemoglobin (Hb) 11.8 g/dL (12.0-16.0); pH, Arterial 7.26 (7.35-7.45)
[2020-09-06 08:51] LABS: ALV-art Gradient 477.525 mmHg (0-20); Puncture Site RFA
[2020-09-06] MEDS ORDERED: Prevnar 13-Val Conj/PF 0.5 ML SYRINGE IM ONE (09:00)
[2020-09-06] MEDS: Pantoprazole 40 MG VIAL IVP SCH (09:03)
[2020-09-06] MEDS: Heparin 5,000 UNITS/ML VIAL SC SCH ×2 (10:09→21:03)
[2020-09-06] MEDS ORDERED: VANCOMYCIN 1.75 GM/350 ML BAG 1.75 GM in Premix Bag 1 BAG IVPB SCH (17:00)
[2020-09-06] MEDS: Acetaminophen 650 MG Suppository PR PRN (17:31)
[2020-09-06] MEDS: Sodium Bicarbonate 140 MEQ in Dextrose 5% in Water 1,000 ML IV SCH (17:33)
[2020-09-06 17:49] LABS: Vancomycin, Random 26.9 ug/mL (See Comment)
[2020-09-06] MEDS ORDERED: Sodium Chloride 0.9% 500 ML IV SCH (18:00)
[2020-09-07] MEDS: Cefepime 1 GM in Sodium Chloride 0.9% 100 ML IVPB SCH ×2 (02:22→15:54)
[2020-09-07] MEDS: Norepinephrine 8 MG/0.9% NS 250 ML IVPB PRN ×3 (02:42→17:51)
[2020-09-07] MEDS: Vasopressin 20 UNIT, Admixture Fee 1 EACH in Sodium Chloride 0.9% 50 ML IV SCH (06:37)
[2020-09-07 06:55] LABS: Anion Gap 23 mmol/L (10-20); BUN (Urea Nitrogen) 100 mg/dL (9.8-20.1); Calc. Creatinine Clearance 17 mL/min (70-130); Carbon Dioxide 16 mmol/L (23-31); Chloride 107 mmol/L (98-107); Glucose 140 mg/dL (80-115); Potassium 5.6 mmol/L (3.5-5.1); Sodium 140 mmol/L (136-145)
[2020-09-07 06:58] LABS: Band 7 % (5-11); Hemoglobin 10.4 g/dL (12.0-16.0); Lymphocytes 22 % (21-51); MDiff Complete? YES; Mean Corpuscular HGB CONC 32.8 g/dL (32.0-36.0); Mean Corpuscular Volume 97.4 fL (78.0-98.0); Mean Platelet Volume 10.3 fL (7.4-10.4); Metamyelocyte 1 % (0-0); Monocytes 9 % (0-10); Neutrophil 61 % (42-75); Platelet Count 48 thou/uL (130-400); Platelet Morphology Comment Appears Decreased; RBC Distribution Width 13.1 % (11.5-14.5); Red Blood Cell (RBC) Count 3.27 mill/uL (4.20-5.40); White Blood Cell (WBC) Count 1.1 thou/uL (4.8-10.8)
[2020-09-07 07:05] LABS: Calcium 5.4 mg/dL (7.8-10.44)
[2020-09-07 07:34] LABS: Actual Bicarbonate (HCO3a) 15.1 mEq/L (22-28); Base Excess (BEa) -9.5 mEq/L (-2.0 to +3.0); CO2 Tension 28.9 mmHg (35.0-45.0); Carboxyhemoglobin (COHb) 2.2 gm% (0.0-3.0); Hemoglobin (Hb) 10.8 g/dL (12.0-16.0); O2 Tension (PaO2), arterial 95.3 mmHg (> 80.0); Potassium - ABG Lab 5.38 mmol/L (3.70-5.30); pH, Arterial 7.34 (7.35-7.45)
[2020-09-07 07:36] LABS: ALV-art Gradient 367.675 mmHg (0-20); Puncture Site RBA
[2020-09-07] MEDS: Sodium Bicarbonate 140 MEQ in Dextrose 5% in Water 1,000 ML IV SCH ×3 (08:43→23:08)
[2020-09-07] MEDS ORDERED: Calcium Gluconate 4.6 MEQ in Sodium Chloride 0.9% 100 ML IVPB SCH (09:08)
[2020-09-07] MEDS: Pantoprazole 40 MG VIAL IVP SCH (09:51)
[2020-09-07] MEDS ORDERED: Calcium Gluconate 9.2 MEQ in Sodium Chloride 0.9% 200 ML IVPB SCH (10:30)
[2020-09-07 11:14] LABS: Phosphorus 7.3 mg/dL (2.3-4.7)
[2020-09-07] MEDS: Heparin 5,000 UNITS/ML VIAL SC SCH ×2 (13:44→21:00)
[2020-09-07 13:49] LABS: Creatinine, Urine 87.19 mg/dL (47-110)
[2020-09-07] MEDS: Fentanyl CADD 100 ML IV SCH (15:50)
[2020-09-07 17:28] LABS: Anion Gap 25 mmol/L (10-20); BUN (Urea Nitrogen) 99 mg/dL (9.8-20.1); Calc. Creatinine Clearance 17 mL/min (70-130); Carbon Dioxide 14 mmol/L (23-31); Chloride 104 mmol/L (98-107); Glucose 141 mg/dL (80-115); Potassium 4.8 mmol/L (3.5-5.1); Sodium 138 mmol/L (136-145)
[2020-09-07 17:35] LABS: Calcium 5.7 mg/dL (7.8-10.44)
[2020-09-07] MEDS ORDERED: Calcium Gluconate 9.2 MEQ in Sodium Chloride 0.9% 100 ML IVPB SCH ×2 (17:53→19:37)
[2020-09-07 19:58] LABS: Phosphorus 7.1 mg/dL (2.3-4.7)
[2020-09-07 21:57] LABS: HBSAg Index 0.21 S/CO (0-0.99); Hep B Surf Ag Non-Reactive S/CO (NonReactive)
[2020-09-07 22:00] LABS: Hep B Surf AB Reactive (NonReactive); Hep C IgG Ab Reflex HepC Qnt (NonReactive); Hep C Index 1.64 S/CO (0-0.79)
[2020-09-07 23:12] LABS: ALT (SGPT) 64 U/L (8-55); AST (SGOT) 154 U/L (5-34); Albumin 1.4 g/dL (3.4-4.8); Alkaline Phosphatase 356 U/L (40-110); Anion Gap 15 mmol/L (10-20); BUN (Urea Nitrogen) 68 mg/dL (9.8-20.1); Bilirubin, Total 0.4 mg/dL (0.2-1.2); Calc. Creatinine Clearance 27 mL/min (70-130); Calcium 4.1 mg/dL (7.8-10.44); Carbon Dioxide 13 mmol/L (23-31); Chloride 119 mmol/L (98-107); Globulin 1.7 g/dL (2.4-3.5); Glucose 105 mg/dL (80-115); Potassium 2.9 mmol/L (3.5-5.1); Protein, Total 3.1 g/dL (5.8-8.1); Sodium 144 mmol/L (136-145)
[2020-09-07 23:14] LABS: CK (CPK) 4546 U/L (29-168)
[2020-09-08 00:48] LABS: ALT (SGPT) 108 U/L (8-55); AST (SGOT) 258 U/L (5-34); Albumin 2.2 g/dL (3.4-4.8); Alkaline Phosphatase 611 U/L (40-110); Anion Gap 26 mmol/L (10-20); BUN (Urea Nitrogen) 103 mg/dL (9.8-20.1); Bilirubin, Total 0.6 mg/dL (0.2-1.2); Calc. Creatinine Clearance 16 mL/min (70-130); Calcium 6.2 mg/dL (7.8-10.44); Carbon Dioxide 18 mmol/L (23-31); Chloride 102 mmol/L (98-107); Globulin 3.1 g/dL (2.4-3.5); Glucose 122 mg/dL (80-115); Potassium 5.4 mmol/L (3.5-5.1); Protein, Total 5.3 g/dL (5.8-8.1); Sodium 141 mmol/L (136-145)
[2020-09-08] MEDS: Norepinephrine 8 MG/0.9% NS 250 ML IVPB PRN ×4 (00:53→19:10)
[2020-09-08] MEDS: Sodium Bicarbonate 140 MEQ in Dextrose 5% in Water 1,000 ML IV SCH ×3 (00:57→14:15)
[2020-09-08 01:08] LABS: Hep B Core Total Ab Reactive (NonReactive)
[2020-09-08 01:09] LABS: Hep B Core Total Index 10.76 S/CO (0-0.79)
[2020-09-08] MEDS: Cefepime 1 GM in Sodium Chloride 0.9% 100 ML IVPB SCH ×2 (02:41→14:15)
[2020-09-08 04:28] LABS: Anion Gap 22 mmol/L (10-20); BUN (Urea Nitrogen) 64 mg/dL (9.8-20.1); Calc. Creatinine Clearance 25 mL/min (70-130); Calcium 6.9 mg/dL (7.8-10.44); Carbon Dioxide 24 mmol/L (23-31); Chloride 98 mmol/L (98-107); Glucose 110 mg/dL (80-115); Magnesium 1.6 mg/dL (1.6-2.6); Sodium 140 mmol/L (136-145)
[2020-09-08 04:30] LABS: Phosphorus 4.3 mg/dL (2.3-4.7); Uric Acid 5.5 mg/dL (2.6-6.0)
[2020-09-08 04:42] LABS: CK (CPK) 6721 U/L (29-168)
[2020-09-08 05:29] LABS: Hemoglobin 10.4 g/dL (12.0-16.0); Mean Corpuscular Hemoglobin 32.5 pg (27.0-31.0); Mean Corpuscular Volume 95.7 fL (78.0-98.0); Mean Platelet Volume 11.4 fL (7.4-10.4); Platelet Count 27 thou/uL (130-400); RBC Distribution Width 13.1 % (11.5-14.5); Red Blood Cell (RBC) Count 3.19 mill/uL (4.20-5.40); White Blood Cell (WBC) Count 0.6 thou/uL (4.8-10.8)
[2020-09-08 05:30] LABS: Band 4 % (5-11); Eosinophils 8 % (0-10); Lymphocytes 64 % (21-51); MDiff Complete? YES; Neutrophil 24 % (42-75)
[2020-09-08] MEDS ORDERED: Fentanyl CADD 100 ML ONE ×2 (05:59→23:44)
[2020-09-08] MEDS: Fentanyl CADD 100 ML IV SCH (06:04)
[2020-09-08] MEDS ORDERED: Calcium Gluconate 9.2 MEQ in Sodium Chloride 0.9% 100 ML IVPB SCH (06:15)
[2020-09-08 06:26] LABS: ALT (SGPT) 104 U/L (8-55); AST (SGOT) 247 U/L (5-34); Albumin 2.2 g/dL (3.4-4.8); Alkaline Phosphatase 637 U/L (40-110); Bilirubin, Direct 0.5 mg/dL (0.1-0.3); Bilirubin, Total 0.6 mg/dL (0.2-1.2); Protein, Total 5.3 g/dL (5.8-8.1)
[2020-09-08 06:57] LABS: Vancomycin, Random 17.7 ug/mL (See Comment)
[2020-09-08] MEDS ORDERED: Vancomycin HCl 500 MG in Sodium Chloride 0.9% 100 ML IVPB SCH (07:15)
[2020-09-08 07:51] LABS: Actual Bicarbonate (HCO3a) 21.9 mEq/L (22-28); Base Excess (BEa) -0.1 mEq/L (-2.0 to +3.0); CO2 Tension 27.3 mmHg (35.0-45.0); Calcium, Ionized (arterial) 0.82 mmol/L (1.12-1.30); Carboxyhemoglobin (COHb) 2.1 gm% (0.0-3.0); Hemoglobin (Hb) 10.5 g/dL (12.0-16.0); O2 Tension (PaO2), arterial 81.3 mmHg (> 80.0); Potassium - ABG Lab 4.14 mmol/L (3.70-5.30); pH, Arterial 7.52 (7.35-7.45)
[2020-09-08 07:52] LABS: ALV-art Gradient 276.725 mmHg (0-20); Puncture Site RBA
[2020-09-08] MEDS: Vasopressin 20 UNIT, Admixture Fee 1 EACH in Sodium Chloride 0.9% 50 ML IV SCH (08:08)
[2020-09-08] MEDS: Pantoprazole 40 MG VIAL IVP SCH (08:09)
[2020-09-08] MEDS ORDERED: Bacteriostatic Water 30 ML VIAL FS PRN (09:45)
[2020-09-08] MEDS: Heparin 5,000 UNITS/ML VIAL SC SCH ×2 (10:02→21:00)
[2020-09-08 10:24] LABS: Albumin 2.2 g/dL (3.4-4.8); Anion Gap 19 mmol/L (10-20); BUN (Urea Nitrogen) 68 mg/dL (9.8-20.1); BUN/Creatinine Ratio 16.75; Calc. Creatinine Clearance 21 mL/min (70-130); Calcium 6.8 mg/dL (7.8-10.44); Carbon Dioxide 25 mmol/L (23-31); Chloride 100 mmol/L (98-107); Glucose 115 mg/dL (80-115); Phosphorus 5.2 mg/dL (2.3-4.7); Potassium 4.3 mmol/L (3.5-5.1); Sodium 140 mmol/L (136-145)
[2020-09-08] MEDS ORDERED: Heparin 10,000 UNITS/ 10 ML VIAL ONE (11:00)
[2020-09-08] MEDS ORDERED: Albumin 25% 25 GM/100 ML BOT IVPB SCH (11:16)
[2020-09-08] MEDS: Hydrocortisone Sod Succ/PF 100 mg/2 ml Vial IVP SCH ×2 (12:17→17:42)
[2020-09-08 12:29] LABS: ALT (SGPT) 88 U/L (8-55); AST (SGOT) 209 U/L (5-34); Albumin 2.1 g/dL (3.4-4.8); Alkaline Phosphatase 602 U/L (40-110); Anion Gap 18 mmol/L (10-20); BUN (Urea Nitrogen) 70 mg/dL (9.8-20.1); Bilirubin, Total 0.5 mg/dL (0.2-1.2); Calc. Creatinine Clearance 20 mL/min (70-130); Calcium 6.7 mg/dL (7.8-10.44); Carbon Dioxide 27 mmol/L (23-31); Chloride 98 mmol/L (98-107); Glucose 138 mg/dL (80-115); Potassium 4.3 mmol/L (3.5-5.1); Protein, Total 5.1 g/dL (5.8-8.1); Sodium 139 mmol/L (136-145); Uric Acid 6.1 mg/dL (2.6-6.0)
[2020-09-08 12:41] LABS: CK (CPK) 5535 U/L (29-168)
[2020-09-08 14:12] LABS: Hep C PCR-Quant HCV Not Detected IU/mL (.)
[2020-09-08 20:28] LABS: ALT (SGPT) 73 U/L (8-55); AST (SGOT) 171 U/L (5-34); Albumin 2.8 g/dL (3.4-4.8); Alkaline Phosphatase 520 U/L (40-110); Anion Gap 15 mmol/L (10-20); BUN (Urea Nitrogen) 36 mg/dL (9.8-20.1); Bilirubin, Total 0.7 mg/dL (0.2-1.2); CK (CPK) 4410 U/L (29-168); Calc. Creatinine Clearance 34 mL/min (70-130); Calcium 7.3 mg/dL (7.8-10.44); Carbon Dioxide 34 mmol/L (23-31); Chloride 94 mmol/L (98-107); Globulin 2.8 g/dL (2.4-3.5); Glucose 161 mg/dL (80-115); Potassium 3.7 mmol/L (3.5-5.1); Protein, Total 5.6 g/dL (5.8-8.1); Sodium 139 mmol/L (136-145)
[2020-09-09] MEDS: Hydrocortisone Sod Succ/PF 100 mg/2 ml Vial IVP SCH ×5 (01:48→22:49)
[2020-09-09] MEDS: Cefepime 1 GM in Sodium Chloride 0.9% 100 ML IVPB SCH ×2 (01:52→16:53)
[2020-09-09] MEDS: Norepinephrine 8 MG/0.9% NS 250 ML IVPB PRN ×2 (03:42→14:35)
[2020-09-09] MEDS: Sodium Bicarbonate 140 MEQ in Dextrose 5% in Water 1,000 ML IV SCH (03:44)
[2020-09-09 05:29] LABS: Hemoglobin 8.1 g/dL (12.0-16.0); MDiff Complete? YES; Mean Corpuscular HGB CONC 33.2 g/dL (32.0-36.0); Mean Corpuscular Hemoglobin 32.5 pg (27.0-31.0); Mean Platelet Volume 14.3 fL (7.4-10.4); Platelet Count 9 thou/uL (130-400); Platelet Morphology Comment Appears Decreased; RBC Distribution Width 12.9 % (11.5-14.5); Red Blood Cell (RBC) Count 2.47 mill/uL (4.20-5.40); Target Cells SLIGHT = 2-5 cells (100X) (0-1/hpf); White Blood Cell (WBC) Count 0.1 thou/uL (4.8-10.8)
[2020-09-09 05:31] LABS: Vancomycin, Random 16.9 ug/mL (See Comment)
[2020-09-09 05:35] LABS: ALT (SGPT) 64 U/L (8-55); AST (SGOT) 151 U/L (5-34); Albumin 2.6 g/dL (3.4-4.8); Alkaline Phosphatase 471 U/L (40-110); Anion Gap 21 mmol/L (10-20); BUN (Urea Nitrogen) 44 mg/dL (9.8-20.1); Bilirubin, Total 0.8 mg/dL (0.2-1.2); CK (CPK) 3325 U/L (29-168); Calc. Creatinine Clearance 29 mL/min (70-130); Calcium 7.2 mg/dL (7.8-10.44); Carbon Dioxide 30 mmol/L (23-31); Chloride 92 mmol/L (98-107); Globulin 2.9 g/dL (2.4-3.5); Glucose 136 mg/dL (80-115); Potassium 3.6 mmol/L (3.5-5.1); Protein, Total 5.5 g/dL (5.8-8.1); Sodium 139 mmol/L (136-145); Uric Acid 3.6 mg/dL (2.6-6.0)
[2020-09-09] MEDS ORDERED: Vancomycin HCl 500 MG in Sodium Chloride 0.9% 100 ML IVPB SCH (06:15)
[2020-09-09 07:09] LABS: Actual Bicarbonate (HCO3a) 31.8 mEq/L (22-28); Base Excess (BEa) 9.2 mEq/L (-2.0 to +3.0); CO2 Tension 35.2 mmHg (35.0-45.0); Calcium, Ionized (arterial) 0.85 mmol/L (1.12-1.30); Carboxyhemoglobin (COHb) 3.1 gm% (0.0-3.0); Hemoglobin (Hb) 8.6 g/dL (12.0-16.0); O2 Tension (PaO2), arterial 65.6 mmHg (> 80.0); Potassium - ABG Lab 3.45 mmol/L (3.70-5.30)
[2020-09-09 07:10] LABS: Puncture Site RBA; pH, Arterial 7.57 (7.35-7.45)
[2020-09-09] MEDS: Pantoprazole 40 MG VIAL IVP SCH (09:38)
[2020-09-09] MEDS: Lorazepam 2 MG/ML VIAL SLOW IVP PRN ×5 (09:39→22:47)
[2020-09-09] MEDS ORDERED: Calcium Gluconate 4.6 MEQ in Sodium Chloride 0.9% 100 ML IVPB SCH (09:52)
[2020-09-09] MEDS ORDERED: Heparin 10,000 UNITS/ 10 ML VIAL ONE (10:37)
[2020-09-09] MEDS ORDERED: Fentanyl CADD 100 ML ONE (11:19)
[2020-09-09] MEDS: Fentanyl CADD 100 ML IV SCH (11:32)
[2020-09-09 17:22] LABS: ALT (SGPT) 56 U/L (8-55); AST (SGOT) 135 U/L (5-34); Albumin 2.6 g/dL (3.4-4.8); Alkaline Phosphatase 440 U/L (40-110); Anion Gap 17 mmol/L (10-20); BUN (Urea Nitrogen) 22 mg/dL (9.8-20.1); Bilirubin, Total 0.9 mg/dL (0.2-1.2); Calc. Creatinine Clearance 53 mL/min (70-130); Calcium 7.4 mg/dL (7.8-10.44); Carbon Dioxide 34 mmol/L (23-31); Chloride 93 mmol/L (98-107); Globulin 3.8 g/dL (2.4-3.5); Glucose 119 mg/dL (80-115); Protein, Total 6.4 g/dL (5.8-8.1); Sodium 139 mmol/L (136-145)
[2020-09-09] MEDS: Propofol 1,000 MG/100 ML VIAL IV PRN (18:29)
[2020-09-10] MEDS ORDERED: Fentanyl CADD 100 ML ONE ×3 (00:49→20:07)
[2020-09-10] MEDS: Cefepime 1 GM in Sodium Chloride 0.9% 100 ML IVPB SCH ×2 (01:20→14:50)
[2020-09-10] MEDS: Norepinephrine 8 MG/0.9% NS 250 ML IVPB PRN ×2 (04:39→17:21)
[2020-09-10 05:17] LABS: CK (CPK) 1159 U/L (29-168); Phosphorus 4.9 mg/dL (2.3-4.7); Uric Acid 3.1 mg/dL (2.6-6.0)
[2020-09-10] MEDS: Hydrocortisone Sod Succ/PF 100 mg/2 ml Vial IVP SCH ×3 (05:39→17:36)
[2020-09-10 06:19] LABS: Hemoglobin 8.8 g/dL (12.0-16.0); MDiff Complete? YES; Macrocytosis SLIGHT = 6-15 cells (100X) (0-5/hpf); Mean Corpuscular HGB CONC 32.5 g/dL (32.0-36.0); Mean Corpuscular Hemoglobin 32.7 pg (27.0-31.0); Mean Platelet Volume 12.1 fL (7.4-10.4); Platelet Count 14 thou/uL (130-400); Platelet Morphology Comment Appears Decreased; White Blood Cell (WBC) Count 0.1 thou/uL (4.8-10.8)
[2020-09-10 06:38] LABS: Vancomycin, Random 11.9 ug/mL (See Comment)
[2020-09-10 06:50] LABS: ALT (SGPT) 45 U/L (8-55); AST (SGOT) 90 U/L (5-34); Albumin 2.4 g/dL (3.4-4.8); Alkaline Phosphatase 371 U/L (40-110); BUN (Urea Nitrogen) 37 mg/dL (9.8-20.1); Bilirubin, Total 0.8 mg/dL (0.2-1.2); Calc. Creatinine Clearance 36 mL/min (70-130); Calcium 7.5 mg/dL (7.8-10.44); Carbon Dioxide 31 mmol/L (23-31); Chloride 94 mmol/L (98-107); Globulin 2.8 g/dL (2.4-3.5); Glucose 113 mg/dL (80-115); Potassium 3.9 mmol/L (3.5-5.1); Protein, Total 5.2 g/dL (5.8-8.1); Sodium 140 mmol/L (136-145)
[2020-09-10 07:05] LABS: Actual Bicarbonate (HCO3a) 30.9 mEq/L (22-28); Base Excess (BEa) 6.9 mEq/L (-2.0 to +3.0); CO2 Tension 42.1 mmHg (35.0-45.0); Calcium, Ionized (arterial) 0.97 mmol/L (1.12-1.30); Carboxyhemoglobin (COHb) 3.2 gm% (0.0-3.0); Hemoglobin (Hb) 10.2 g/dL (12.0-16.0); Potassium - ABG Lab 3.91 mmol/L (3.70-5.30)
[2020-09-10] MEDS ORDERED: Vancomycin HCl 750 MG in Sodium Chloride 0.9% 250 ML 250 ML IVPB SCH (07:15)
[2020-09-10 07:28] LABS: Anion Gap 19 mmol/L (10-20)
[2020-09-10 07:31] LABS: O2 Tension (PaO2), arterial 55.2 mmHg (> 80.0)
[2020-09-10 07:32] LABS: ALV-art Gradient 177.375 mmHg (0-20); Puncture Site Arterial Line; pH, Arterial 7.56 (7.35-7.45)
[2020-09-10] MEDS: Pantoprazole 40 MG VIAL IVP SCH (09:38)
[2020-09-10] MEDS: Propofol 1,000 MG/100 ML VIAL IV PRN (09:38)
[2020-09-10] MEDS ORDERED: Metoclopramide HCl 10 MG/2 ML VIAL IVP SCH (14:00)
[2020-09-11] MEDS: Hydrocortisone Sod Succ/PF 100 mg/2 ml Vial IVP SCH ×5 (00:12→23:39)
[2020-09-11] MEDS: Propofol 1,000 MG/100 ML VIAL IV PRN ×2 (00:12→12:58)
[2020-09-11] MEDS: Cefepime 1 GM in Sodium Chloride 0.9% 100 ML IVPB SCH ×2 (02:00→13:35)
[2020-09-11 04:29] LABS: ALT (SGPT) 29 U/L (8-55); AST (SGOT) 51 U/L (5-34); Albumin 2.2 g/dL (3.4-4.8); Alkaline Phosphatase 287 U/L (40-110); Anion Gap 19 mmol/L (10-20); BUN (Urea Nitrogen) 64 mg/dL (9.8-20.1); Bilirubin, Total 0.7 mg/dL (0.2-1.2); Calc. Creatinine Clearance 28 mL/min (70-130); Calcium 7.8 mg/dL (7.8-10.44); Carbon Dioxide 29 mmol/L (23-31); Chloride 94 mmol/L (98-107); Glucose 117 mg/dL (80-115); Protein, Total 5.2 g/dL (5.8-8.1); Sodium 138 mmol/L (136-145)
[2020-09-11] MEDS: Norepinephrine 8 MG/0.9% NS 250 ML IVPB PRN ×3 (04:31→22:42)
[2020-09-11 04:39] LABS: Mean Corpuscular HGB CONC 31.9 g/dL (32.0-36.0); Mean Corpuscular Hemoglobin 32.4 pg (27.0-31.0); Mean Platelet Volume 13.9 fL (7.4-10.4); Platelet Count 6 thou/uL (130-400); RBC Distribution Width 12.9 % (11.5-14.5); Red Blood Cell (RBC) Count 2.46 mill/uL (4.20-5.40); White Blood Cell (WBC) Count 0.1 thou/uL (4.8-10.8)
[2020-09-11 04:40] LABS: MDiff Complete? YES; Macrocytosis SLIGHT = 6-15 cells (100X) (0-5/hpf); Platelet Morphology Comment Appears Decreased; Target Cells SLIGHT = 2-5 cells (100X) (0-1/hpf)
[2020-09-11] MEDS ORDERED: Fentanyl CADD 100 ML ONE ×2 (05:45→15:45)
[2020-09-11 07:49] LABS: Actual Bicarbonate (HCO3a) 27.3 mEq/L (22-28); Base Excess (BEa) 3.7 mEq/L (-2.0 to +3.0); Calcium, Ionized (arterial) 0.96 mmol/L (1.12-1.30); Carboxyhemoglobin (COHb) 3.3 gm% (0.0-3.0); Hemoglobin (Hb) 7.7 g/dL (12.0-16.0); O2 Tension (PaO2), arterial 63.8 mmHg (> 80.0); Potassium - ABG Lab 3.99 mmol/L (3.70-5.30); Puncture Site RRA; pH, Arterial 7.49 (7.35-7.45)
[2020-09-11] MEDS ORDERED: Vancomycin HCl 750 MG in Sodium Chloride 0.9% 250 ML 250 ML IVPB SCH (08:00)
[2020-09-11] MEDS ORDERED: Heparin 10,000 UNITS/ 10 ML VIAL ONE (08:33)
[2020-09-11] MEDS: Pantoprazole 40 MG VIAL IVP SCH (09:33)
[2020-09-11] MEDS ORDERED: VANCOMYCIN 1.25 GM/250 ML BAG 1.25 GM in Premix Bag 1 BAG IVPB SCH (10:00)
[2020-09-11] MEDS: Albumin 25% 25 GM/100 ML BOT IVPB SCH ×3 (11:43→23:39)
[2020-09-12] MEDS ORDERED: Fentanyl CADD 100 ML ONE ×2 (01:47→15:03)
[2020-09-12] MEDS: Cefepime 1 GM in Sodium Chloride 0.9% 100 ML IVPB SCH ×2 (01:55→12:43)
[2020-09-12] MEDS: Propofol 1,000 MG/100 ML VIAL IV PRN ×2 (01:56→13:12)
[2020-09-12 05:03] LABS: ALT (SGPT) 19 U/L (8-55); AST (SGOT) 30 U/L (5-34); Albumin 2.9 g/dL (3.4-4.8); Alkaline Phosphatase 196 U/L (40-110); Anion Gap 18 mmol/L (10-20); BUN (Urea Nitrogen) 38 mg/dL (9.8-20.1); Bilirubin, Total 1.2 mg/dL (0.2-1.2); CK (CPK) 155 U/L (29-168); Calc. Creatinine Clearance 35 mL/min (70-130); Calcium 8.6 mg/dL (7.8-10.44); Carbon Dioxide 29 mmol/L (23-31); Chloride 96 mmol/L (98-107); Globulin 2.6 g/dL (2.4-3.5); Glucose 89 mg/dL (80-115); Potassium 3.6 mmol/L (3.5-5.1); Protein, Total 5.5 g/dL (5.8-8.1); Sodium 139 mmol/L (136-145)
[2020-09-12 05:47] LABS: Hemoglobin 6.2 g/dL (12.0-16.0); MDiff Complete? YES; Macrocytosis MODERATE=16-30 cells (100X) (0-5/hpf); Mean Corpuscular HGB CONC 31.3 g/dL (32.0-36.0); Mean Corpuscular Hemoglobin 31.9 pg (27.0-31.0); Mean Platelet Volume 10.1 fL (7.4-10.4); Platelet Count 15 thou/uL (130-400); Platelet Morphology Comment Appears Decreased; RBC Distribution Width 12.9 % (11.5-14.5); Red Blood Cell (RBC) Count 1.94 mill/uL (4.20-5.40); White Blood Cell (WBC) Count 0.1 thou/uL (4.8-10.8)
[2020-09-12] MEDS: Hydrocortisone Sod Succ/PF 100 mg/2 ml Vial IVP SCH ×4 (06:08→23:27)
[2020-09-12] MEDS: Lorazepam 2 MG/ML VIAL SLOW IVP PRN ×4 (07:56→17:42)
[2020-09-12] MEDS: Pantoprazole 40 MG VIAL IVP SCH (07:58)
[2020-09-12 08:02] LABS: Base Excess (BEa) 3.2 mEq/L (-2.0 to +3.0); CO2 Tension 44.5 mmHg (35.0-45.0); Calcium, Ionized (arterial) 1.06 mmol/L (1.12-1.30); Hemoglobin (Hb) 7.7 g/dL (12.0-16.0); O2 Tension (PaO2), arterial 78.4 mmHg (> 80.0); Potassium - ABG Lab 3.54 mmol/L (3.70-5.30); pH, Arterial 7.42 (7.35-7.45)
[2020-09-12 08:03] LABS: ALV-art Gradient 258.125 mmHg (0-20); Puncture Site RRA
[2020-09-12] MEDS: Norepinephrine 8 MG/0.9% NS 250 ML IVPB PRN ×2 (08:36→21:31)
[2020-09-12] MEDS ORDERED: VANCOMYCIN 1.25 GM/250 ML BAG 1.25 GM in Premix Bag 1 BAG IVPB SCH (10:00)
[2020-09-12 10:17] LABS: Vancomycin, Random 24.6 ug/mL (See Comment)
[2020-09-12 10:19] LABS: Phosphorus 4.6 mg/dL (2.3-4.7); Uric Acid 3.1 mg/dL (2.6-6.0)
[2020-09-12] MEDS: Furosemide 100 MG/10 ML VIAL SLOW IVP SCH ×2 (12:43→21:32)
[2020-09-13] MEDS: Propofol 1,000 MG/100 ML VIAL IV PRN ×2 (00:37→17:38)
[2020-09-13] MEDS: Cefepime 1 GM in Sodium Chloride 0.9% 100 ML IVPB SCH ×2 (02:56→13:21)
[2020-09-13] MEDS: Hydrocortisone Sod Succ/PF 100 mg/2 ml Vial IVP SCH ×4 (05:31→23:10)
[2020-09-13] MEDS: Furosemide 100 MG/10 ML VIAL SLOW IVP SCH (05:31)
[2020-09-13 05:54] LABS: Hemoglobin 7.8 g/dL (12.0-16.0); Mean Corpuscular HGB CONC 33.1 g/dL (32.0-36.0); Mean Corpuscular Hemoglobin 31.9 pg (27.0-31.0); Mean Corpuscular Volume 96.5 fL (78.0-98.0); Mean Platelet Volume 11.9 fL (7.4-10.4); Platelet Count 9 thou/uL (130-400); RBC Distribution Width 15.4 % (11.5-14.5); Red Blood Cell (RBC) Count 2.46 mill/uL (4.20-5.40); White Blood Cell (WBC) Count 0.5 thou/uL (4.8-10.8)
[2020-09-13 05:55] LABS: Hypochromia SLIGHT = 6-15 cells (100X) (0-5/hpf); MDiff Complete? YES; Platelet Morphology Comment Appears Decreased; Target Cells SLIGHT = 2-5 cells (100X) (0-1/hpf)
[2020-09-13 06:11] LABS: ALT (SGPT) 11 U/L (8-55); AST (SGOT) 20 U/L (5-34); Albumin 2.5 g/dL (3.4-4.8); Alkaline Phosphatase 151 U/L (40-110); Anion Gap 22 mmol/L (10-20); BUN (Urea Nitrogen) 58 mg/dL (9.8-20.1); Bilirubin, Total 1.7 mg/dL (0.2-1.2); Calc. Creatinine Clearance 30 mL/min (70-130); Calcium 8.4 mg/dL (7.8-10.44); Carbon Dioxide 24 mmol/L (23-31); Chloride 97 mmol/L (98-107); Globulin 2.7 g/dL (2.4-3.5); Glucose 83 mg/dL (80-115); Potassium 3.9 mmol/L (3.5-5.1); Protein, Total 5.2 g/dL (5.8-8.1); Sodium 139 mmol/L (136-145)
[2020-09-13] MEDS ORDERED: Pantoprazole 40 MG VIAL IVP SCH (06:45)
[2020-09-13] MEDS: Fentanyl CADD 100 ML IV SCH ×2 (07:07→23:50)
[2020-09-13 07:40] LABS: Actual Bicarbonate (HCO3a) 21.9 mEq/L (22-28); Base Excess (BEa) -1.8 mEq/L (-2.0 to +3.0); CO2 Tension 33.6 mmHg (35.0-45.0); Calcium, Ionized (arterial) 1.08 mmol/L (1.12-1.30); Carboxyhemoglobin (COHb) 1.9 gm% (0.0-3.0); Hemoglobin (Hb) 12.9 g/dL (12.0-16.0); O2 Tension (PaO2), arterial 65.1 mmHg (> 80.0); Potassium - ABG Lab 3.81 mmol/L (3.70-5.30); pH, Arterial 7.43 (7.35-7.45)
[2020-09-13 07:49] LABS: Puncture Site RBA
[2020-09-13 10:41] LABS: Vancomycin, Random 20.8 ug/mL (See Comment)
[2020-09-13] MEDS: Albumin 25% 25 GM/100 ML BOT IVPB SCH ×3 (11:08→23:10)
[2020-09-13] MEDS ORDERED: Heparin 10,000 UNITS/ 10 ML VIAL ONE (12:27)
[2020-09-13] MEDS: Lorazepam 2 MG/ML VIAL SLOW IVP PRN ×2 (13:21→17:39)
[2020-09-13] MEDS: Pantoprazole 40 MG VIAL IVP SCH (21:04)
[2020-09-14] MEDS: Cefepime 1 GM in Sodium Chloride 0.9% 100 ML IVPB SCH ×2 (02:53→12:47)
[2020-09-14] MEDS: Norepinephrine 8 MG/0.9% NS 250 ML IVPB PRN (02:54)
[2020-09-14 04:59] LABS: Hemoglobin 8.9 g/dL (12.0-16.0); Lymphocytes 9 % (21-51); MDiff Complete? YES; Mean Corpuscular HGB CONC 32.6 g/dL (32.0-36.0); Mean Corpuscular Volume 95.1 fL (78.0-98.0); Mean Platelet Volume 12.5 fL (7.4-10.4); Metamyelocyte 11 % (0-0); Monocytes 22 % (0-10); Neutrophil 58 % (42-75); Platelet Count 5 thou/uL (130-400); Platelet Morphology Comment Appears Decreased; RBC Distribution Width 14.7 % (11.5-14.5); Red Blood Cell (RBC) Count 2.87 mill/uL (4.20-5.40); White Blood Cell (WBC) Count 1.7 thou/uL (4.8-10.8)
[2020-09-14 05:06] LABS: ALT (SGPT) 11 U/L (8-55); AST (SGOT) 17 U/L (5-34); Alkaline Phosphatase 124 U/L (40-110); Anion Gap 21 mmol/L (10-20); BUN (Urea Nitrogen) 41 mg/dL (9.8-20.1); Bilirubin, Total 2.3 mg/dL (0.2-1.2); Calc. Creatinine Clearance 41 mL/min (70-130); Calcium 8.9 mg/dL (7.8-10.44); Carbon Dioxide 24 mmol/L (23-31); Chloride 98 mmol/L (98-107); Globulin 2.5 g/dL (2.4-3.5); Glucose 88 mg/dL (80-115); Protein, Total 5.5 g/dL (5.8-8.1); Sodium 139 mmol/L (136-145)
[2020-09-14] MEDS: Albumin 25% 25 GM/100 ML BOT IVPB SCH (06:00)
[2020-09-14] MEDS: Hydrocortisone Sod Succ/PF 100 mg/2 ml Vial IVP SCH ×4 (06:00→21:20)
[2020-09-14] MEDS: Pantoprazole 40 MG VIAL IVP SCH ×2 (07:14→21:21)
[2020-09-14 07:58] LABS: Actual Bicarbonate (HCO3a) 23.5 mEq/L (22-28); Analyzer IN Cardio OR; Base Excess (BEa) -0.1 mEq/L (-2.0 to +3.0); CO2 Tension 34.4 mmHg (35.0-45.0); Carboxyhemoglobin (COHb) 1.9 gm% (0.0-3.0); Hemoglobin (Hb) 10.4 g/dL (12.0-16.0); O2 Tension (PaO2), arterial 70.5 mmHg (> 80.0); Potassium - ABG Lab 3.73 mmol/L (3.70-5.30); pH, Arterial 7.45 (7.35-7.45)
[2020-09-14] MEDS: Propofol 1,000 MG/100 ML VIAL IV PRN (07:58)
[2020-09-14 08:05] LABS: Puncture Site RRA
[2020-09-14] MEDS: Lorazepam 2 MG/ML VIAL SLOW IVP PRN ×2 (08:32→16:15)
[2020-09-14 09:30] LABS: Fibrinogen 850 mg/dL (253-463)
[2020-09-14 09:31] LABS: INR-International Normal Ratio 1.2; PTT 38.5 sec (22.9-36.1); Prothrombin Time 15.2 sec (12.0-14.7)
[2020-09-14 09:39] LABS: D-Dimer Test 13.27 *mcg/mL (0.27-0.43)
[2020-09-14 10:18] LABS: FSP-Qualitative ABNORMAL (Normal); FSP-Semiquantitative >=160 & <320 mcg/mL (Less than 5)
[2020-09-14 10:26] LABS: Platelet Count 6 thou/uL (130-400)
[2020-09-14] MEDS ORDERED: Vancomycin 1 GM in Premix Bag 1 BAG IVPB SCH (11:30)
[2020-09-14] MEDS ORDERED: Fentanyl CADD 100 ML ONE (16:25)
[2020-09-14] MEDS: Fentanyl CADD 100 ML IV SCH (16:26)
[2020-09-15] MEDS: Cefepime 1 GM in Sodium Chloride 0.9% 100 ML IVPB SCH ×2 (02:07→12:38)
[2020-09-15] MEDS: Hydrocortisone Sod Succ/PF 100 mg/2 ml Vial IVP SCH ×4 (03:27→21:21)
[2020-09-15] MEDS: Norepinephrine 8 MG/0.9% NS 250 ML IVPB PRN ×2 (04:01→12:39)
[2020-09-15] MEDS: Propofol 1,000 MG/100 ML VIAL IV PRN (04:26)
[2020-09-15 04:44] LABS: Hemoglobin 8.5 g/dL (12.0-16.0); Mean Corpuscular HGB CONC 31.9 g/dL (32.0-36.0); Mean Corpuscular Hemoglobin 30.4 pg (27.0-31.0); Mean Corpuscular Volume 95.3 fL (78.0-98.0); Mean Platelet Volume 11.8 fL (7.4-10.4); Platelet Count 24 thou/uL (130-400); RBC Distribution Width 14.4 % (11.5-14.5); Red Blood Cell (RBC) Count 2.79 mill/uL (4.20-5.40); White Blood Cell (WBC) Count 6.3 thou/uL (4.8-10.8)
[2020-09-15 04:55] LABS: Band 34 % (5-11); Lymphocytes 5 % (21-51); MDiff Complete? YES; Metamyelocyte 5 % (0-0); Monocytes 9 % (0-10); Myelocyte 1 % (0-0); Neutrophil 44 % (42-75); Platelet Morphology Comment Appears Decreased; Reactive Lymphocytes 2 % (0-10)
[2020-09-15 05:03] LABS: ALT (SGPT) 11 U/L (8-55); AST (SGOT) 17 U/L (5-34); Albumin 2.8 g/dL (3.4-4.8); Alkaline Phosphatase 112 U/L (40-110); Anion Gap 21 mmol/L (10-20); BUN (Urea Nitrogen) 68 mg/dL (9.8-20.1); Bilirubin, Total 2.4 mg/dL (0.2-1.2); Calc. Creatinine Clearance 31 mL/min (70-130); Carbon Dioxide 23 mmol/L (23-31); Chloride 99 mmol/L (98-107); Globulin 2.6 g/dL (2.4-3.5); Glucose 90 mg/dL (80-115); Potassium 3.9 mmol/L (3.5-5.1); Protein, Total 5.4 g/dL (5.8-8.1); Sodium 139 mmol/L (136-145)
[2020-09-15] MEDS: Lorazepam 2 MG/ML VIAL SLOW IVP PRN ×6 (07:18→22:52)
[2020-09-15] MEDS: Pantoprazole 40 MG VIAL IVP SCH ×2 (07:18→21:22)
[2020-09-15 08:03] LABS: Actual Bicarbonate (HCO3a) 23.2 mEq/L (22-28); Base Excess (BEa) -1.1 mEq/L (-2.0 to +3.0); CO2 Tension 37.3 mmHg (35.0-45.0); Calcium, Ionized (arterial) 1.18 mmol/L (1.12-1.30); Carboxyhemoglobin (COHb) 1.4 gm% (0.0-3.0); Hemoglobin (Hb) 12.2 g/dL (12.0-16.0); O2 Tension (PaO2), arterial 69.2 mmHg (> 80.0); Potassium - ABG Lab 3.95 mmol/L (3.70-5.30); pH, Arterial 7.41 (7.35-7.45)
[2020-09-15 08:04] LABS: ALV-art Gradient 240.675 mmHg (0-20); Puncture Site RRA
[2020-09-15] MEDS ORDERED: Fentanyl CADD 100 ML ONE (10:21)
[2020-09-15] MEDS: Fentanyl CADD 100 ML IV SCH (10:24)
[2020-09-15 11:03] LABS: Vancomycin, Random 24.1 ug/mL (See Comment)
[2020-09-15] MEDS ORDERED: Morphine 2 MG/ML VIAL SLOW IVP PRN (16:46)
[2020-09-15] MEDS ORDERED: Fentanyl BOLUS 250 ML IVPB PRN (16:46)
[2020-09-15] MEDS ORDERED: Fentanyl CADD 100 ML IV SCH (17:00)
[2020-09-15] MEDS ORDERED: Sodium Chloride 0.9% 1,000 ML IV SCH (17:45)
[2020-09-15] MEDS: Micafungin 150 MG in Sodium Chloride 0.9% 100 ML IVPB SCH (17:53)
[2020-09-16] MEDS ORDERED: Fentanyl CADD 100 ML ONE ×2 (00:30→23:23)
[2020-09-16] MEDS: Cefepime 1 GM in Sodium Chloride 0.9% 100 ML IVPB SCH ×2 (02:34→13:27)
[2020-09-16] MEDS: Hydrocortisone Sod Succ/PF 100 mg/2 ml Vial IVP SCH ×4 (03:24→20:52)
[2020-09-16 04:25] LABS: Hemoglobin 8.7 g/dL (12.0-16.0); Mean Corpuscular Hemoglobin 32.5 pg (27.0-31.0); Mean Corpuscular Volume 95.8 fL (78.0-98.0); Mean Platelet Volume 12.6 fL (7.4-10.4); Platelet Count 24 thou/uL (130-400); RBC Distribution Width 14.4 % (11.5-14.5); Red Blood Cell (RBC) Count 2.68 mill/uL (4.20-5.40); White Blood Cell (WBC) Count 15.8 thou/uL (4.8-10.8)
[2020-09-16 04:35] LABS: ALT (SGPT) 10 U/L (8-55); AST (SGOT) 19 U/L (5-34); Albumin 2.5 g/dL (3.4-4.8); Alkaline Phosphatase 120 U/L (40-110); Anion Gap 26 mmol/L (10-20); BUN (Urea Nitrogen) 98 mg/dL (9.8-20.1); Bilirubin, Total 2.1 mg/dL (0.2-1.2); Calc. Creatinine Clearance 0 mL/min (70-130); Calcium 9.5 mg/dL (7.8-10.44); Carbon Dioxide 18 mmol/L (23-31); Chloride 102 mmol/L (98-107); Globulin 2.8 g/dL (2.4-3.5); Glucose 88 mg/dL (80-115); Magnesium 2.4 mg/dL (1.6-2.6); Potassium 4.3 mmol/L (3.5-5.1); Protein, Total 5.3 g/dL (5.8-8.1); Sodium 142 mmol/L (136-145)
[2020-09-16 04:55] LABS: Band 5 % (5-11); Lymphocytes 4 % (21-51); MDiff Complete? YES; Metamyelocyte 8 % (0-0); Monocytes 9 % (0-10); Neutrophil 73 % (42-75); Nucleated RBC 1 % (0); Platelet Morphology Comment Appears Decreased; Reactive Lymphocytes 1 % (0-10)
[2020-09-16] MEDS: Norepinephrine 8 MG/0.9% NS 250 ML IVPB PRN ×3 (05:18→19:13)
[2020-09-16 08:12] LABS: Actual Bicarbonate (HCO3a) 20.5 mEq/L (22-28); Base Excess (BEa) -3.8 mEq/L (-2.0 to +3.0); CO2 Tension 33.9 mmHg (35.0-45.0); Calcium, Ionized (arterial) 1.16 mmol/L (1.12-1.30); Carboxyhemoglobin (COHb) 1.6 gm% (0.0-3.0); Hemoglobin (Hb) 8.7 g/dL (12.0-16.0); O2 Tension (PaO2), arterial 79.1 mmHg (> 80.0); Potassium - ABG Lab 4.12 mmol/L (3.70-5.30)
[2020-09-16 08:29] LABS: Puncture Site LRA
[2020-09-16 08:30] LABS: ALV-art Gradient 235.025 mmHg (0-20)
[2020-09-16] MEDS: Pantoprazole 40 MG VIAL IVP SCH ×2 (08:42→22:04)
[2020-09-16 09:17] LABS: Vancomycin, Random 17.1 ug/mL (See Comment)
[2020-09-16] MEDS ORDERED: Vancomycin HCl 750 MG in Sodium Chloride 0.9% 250 ML 250 ML IVPB SCH (11:00)
[2020-09-16] MEDS ORDERED: Heparin 10,000 UNITS/ 10 ML VIAL ONE (12:29)
[2020-09-16] MEDS: Lorazepam 2 MG/ML VIAL SLOW IVP PRN ×3 (13:25→22:09)
[2020-09-16] MEDS: Micafungin 150 MG in Sodium Chloride 0.9% 100 ML IVPB SCH (19:10)
[2020-09-17 02:06] LABS: Actual Bicarbonate (HCO3a) 14.7 mEq/L (22-28); Base Excess (BEa) -9.8 mEq/L (-2.0 to +3.0); CO2 Tension 28.2 mmHg (35.0-45.0); Calcium, Ionized (arterial) 1.17 mmol/L (1.12-1.30); Carboxyhemoglobin (COHb) 1.5 gm% (0.0-3.0); Hemoglobin (Hb) 11.3 g/dL (12.0-16.0); Potassium - ABG Lab 5.17 mmol/L (3.70-5.30); pH, Arterial 7.34 (7.35-7.45)
[2020-09-17 02:15] LABS: Puncture Site RRA
[2020-09-17] MEDS: Cefepime 1 GM in Sodium Chloride 0.9% 100 ML IVPB SCH (02:21)
[2020-09-17] MEDS ORDERED: Albumin 25% 0 ML ONE (02:42)
[2020-09-17] MEDS ORDERED: Albumin 5% 250 ML ONE ×2 (02:44→06:38)
[2020-09-17 02:45] LABS: Hemoglobin 10.6 g/dL (12.0-16.0); Mean Corpuscular HGB CONC 31.6 g/dL (32.0-36.0); Mean Corpuscular Hemoglobin 30.6 pg (27.0-31.0); Mean Corpuscular Volume 96.7 fL (78.0-98.0); Mean Platelet Volume 13.3 fL (7.4-10.4); Platelet Count 22 thou/uL (130-400); RBC Distribution Width 14.8 % (11.5-14.5); Red Blood Cell (RBC) Count 3.45 mill/uL (4.20-5.40); White Blood Cell (WBC) Count 43.7 thou/uL (4.8-10.8)
[2020-09-17 02:58] LABS: Band 16 % (5-11); Hypochromia SLIGHT = 6-15 cells (100X) (0-5/hpf); Lymphocytes 2 % (21-51); MDiff Complete? YES; Monocytes 30 % (0-10); Neutrophil 33 % (42-75); Nucleated RBC 3 % (0); Platelet Morphology Comment Appears Decreased; Reactive Lymphocytes 19 % (0-10)
[2020-09-17 03:01] LABS: ALT (SGPT) 12 U/L (8-55); AST (SGOT) 28 U/L (5-34); Albumin 2.3 g/dL (3.4-4.8); Alkaline Phosphatase 152 U/L (40-110); Anion Gap 27 mmol/L (10-20); BUN (Urea Nitrogen) 61 mg/dL (9.8-20.1); Bilirubin, Total 2.1 mg/dL (0.2-1.2); Calc. Creatinine Clearance 31 mL/min (70-130); Calcium 9.4 mg/dL (7.8-10.44); Carbon Dioxide 17 mmol/L (23-31); Chloride 102 mmol/L (98-107); Globulin 2.9 g/dL (2.4-3.5); Glucose 139 mg/dL (80-115); Potassium 5.3 mmol/L (3.5-5.1); Protein, Total 5.2 g/dL (5.8-8.1); Sodium 141 mmol/L (136-145)
[2020-09-17] MEDS ORDERED: Sodium Chloride 0.9% 500 ML IV SCH (03:15)
[2020-09-17 03:30] LABS: Lactic Acid 7.2 mmol/L (0.5-2.2)
[2020-09-17] MEDS ORDERED: Acetaminophen 650 MG/20.3 ML UDCUP PER TUBE SCH (03:30)
[2020-09-17] MEDS ORDERED: Albumin 25% 25 GM/100 ML BOT IVPB SCH ×3 (03:30→16:30)
[2020-09-17] MEDS: Hydrocortisone Sod Succ/PF 100 mg/2 ml Vial IVP SCH ×4 (03:39→20:09)
[2020-09-17] MEDS: MEROPENEM 1 GM/50 ML 1 GM in Premix Bag 1 BAG IVPB SCH ×2 (05:19→15:52)
[2020-09-17] MEDS ORDERED: Calcium Chloride 1 GM/10 ML Abboject SYRINGE ONE (05:55)
[2020-09-17] MEDS ORDERED: Calcium Gluc 4.6 MEQ/10 ML (100 MG/ML) SLOW IVP SCH (06:00)
[2020-09-17] MEDS ORDERED: Sodium Bicarb 50 MEQ/50 ML Abboject 8.4% SYRINGE ONE ×3 (06:03→16:51)
[2020-09-17 06:14] LABS: Actual Bicarbonate (HCO3a) 13.5 mEq/L (22-28); Base Excess (BEa) -13.2 mEq/L (-2.0 to +3.0); CO2 Tension 33.8 mmHg (35.0-45.0); Calcium, Ionized (arterial) 1.38 mmol/L (1.12-1.30); Hemoglobin (Hb) 10.6 g/dL (12.0-16.0); Potassium - ABG Lab 5.47 mmol/L (3.70-5.30)
[2020-09-17 06:22] LABS: Puncture Site RRA; pH, Arterial 7.22 (7.35-7.45)
[2020-09-17] MEDS ORDERED: Sodium Bicarbonate 150 MEQ in Dextrose 5% in Water 1,000 ML IV SCH (06:45)
[2020-09-17] MEDS: Lorazepam 2 MG/ML VIAL SLOW IVP PRN (08:14)
[2020-09-17] MEDS: Pantoprazole 40 MG VIAL IVP SCH ×2 (08:32→20:09)
[2020-09-17] MEDS: Norepinephrine 8 MG/0.9% NS 250 ML IVPB PRN ×3 (08:32→16:36)
[2020-09-17] MEDS ORDERED: Vancomycin 1 GM in Premix Bag 1 BAG IVPB SCH ×2 (11:00→13:15)
[2020-09-17] MEDS ORDERED: Heparin 10,000 UNITS/ 10 ML VIAL ONE (12:32)
[2020-09-17] MEDS ORDERED: Vecuronium 10 MG VIAL ONE (12:48)
[2020-09-17] MEDS ORDERED: Vancomycin HCl 1.25 GM in Sodium Chloride 0.9% 250 ML 250 ML IVPB SCH (13:15)
[2020-09-17] MEDS ORDERED: HOLD VANCOMYCIN FOR LEVEL >20 FS SCH (13:15)
[2020-09-17] MEDS ORDERED: Vancomycin HCl 750 MG in Sodium Chloride 0.9% 250 ML 250 ML IVPB SCH (13:15)
[2020-09-17] MEDS ORDERED: Vancomycin Sliding Scale 1 EACH FS ONE (13:15)
[2020-09-17] MEDS ORDERED: Vancomycin HCl 500 MG in Sodium Chloride 0.9% 100 ML IVPB SCH (13:15)
[2020-09-17] MEDS: Vasopressin 20 UNIT, Admixture Fee 1 EACH in Sodium Chloride 0.9% 50 ML IV SCH ×2 (15:00→19:48)
[2020-09-17 15:11] LABS: Anion Gap 38 mmol/L (10-20); BUN (Urea Nitrogen) 73 mg/dL (9.8-20.1); Calc. Creatinine Clearance 0 mL/min (70-130); Calcium 8.6 mg/dL (7.8-10.44); Chloride 104 mmol/L (98-107); Glucose 165 mg/dL (80-115); Potassium 5.8 mmol/L (3.5-5.1); Sodium 144 mmol/L (136-145)
[2020-09-17 15:16] LABS: Carbon Dioxide 8 mmol/L (23-31)
[2020-09-17 16:04] LABS: Clarity Hazy (Clear); Leukocyte Unable to Interpret (Negative); Nitrite Unable to Interpret (Negative); Protein, Urine (Dipstick) Unable to Interpret mg/dL (Neg-Trace); Specific Gravity, Urine 1.028 (1.002-1.036); pH, Urine 6.5 (5.0-9.0)
[2020-09-17 16:05] LABS: Bilirubin Unable to Interpret (Negative); Blood, Urine Unable to Interpret (Negative); Glucose, Urine (Dipstick) Unable to Interpret mg/dL (Negative); Ketone, Urine Unable to Interpret mg/dL (Negative); Urobilinogen UNABLE TO INTERPRET mg/dL (Less than 2)
[2020-09-17 16:07] LABS: Bacteria/HPF 2+ HPF (None Seen); RBC/HPF Greater than 50 HPF (0-3); Squamous Epithelial None Seen HPF (0-3); Transitional Epithelial None Seen HPF (None Seen)
[2020-09-17 16:46] LABS: Actual Bicarbonate (HCO3a) 8.8 mEq/L (22-28); Base Excess (BEa) -20.9 mEq/L (-2.0 to +3.0); CO2 Tension 35.6 mmHg (35.0-45.0); Hemoglobin (Hb) 8.3 g/dL (12.0-16.0); O2 Tension (PaO2), arterial 157.3 mmHg (> 80.0); Potassium - ABG Lab 5.71 mmol/L (3.70-5.30)
[2020-09-17 16:47] LABS: pH, Arterial 7.01 (7.35-7.45)
[2020-09-17 16:48] LABS: Puncture Site Arterial Line
[2020-09-17] MEDS ORDERED: Sodium Bicarb 50 MEQ/50 ML Abboject 8.4% SYRINGE IVP SCH ×3 (17:00→22:00)
[2020-09-17] MEDS: EPINEPHrine 4 MG in Dextrose 5% in Water 250 ML IV SCH ×2 (17:06→19:45)
[2020-09-17] MEDS: Micafungin 150 MG in Sodium Chloride 0.9% 100 ML IVPB SCH (18:24)
[2020-09-17] MEDS: Sodium Bicarbonate 150 MEQ in Dextrose 5% in Water 1,000 ML IV SCH (18:38)
[2020-09-17 20:04] LABS: Actual Bicarbonate (HCO3a) 15.3 mEq/L (22-28); Base Excess (BEa) -10.6 mEq/L (-2.0 to +3.0); CO2 Tension 33.7 mmHg (35.0-45.0); Calcium, Ionized (arterial) 0.96 mmol/L (1.12-1.30); Carboxyhemoglobin (COHb) 1.6 gm% (0.0-3.0); Hemoglobin (Hb) 7.4 g/dL (12.0-16.0); O2 Tension (PaO2), arterial 69.4 mmHg (> 80.0); Potassium - ABG Lab 4.01 mmol/L (3.70-5.30); pH, Arterial 7.28 (7.35-7.45)
[2020-09-17 20:11] LABS: ALV-art Gradient 458.875 mmHg (0-20); Puncture Site Arterial Line
[2020-09-17] MEDS: Norepinephrine 16 MG in Dextrose 5% in Water 234 ML IVPB PRN (20:37)
[2020-09-18] MEDS: EPINEPHrine 4 MG in Dextrose 5% in Water 250 ML IV SCH ×6 (00:13→18:24)
[2020-09-18] MEDS: Sodium Bicarbonate 150 MEQ in Dextrose 5% in Water 1,000 ML IV SCH ×5 (00:13→20:11)
[2020-09-18] MEDS: Hydrocortisone Sod Succ/PF 100 mg/2 ml Vial IVP SCH ×4 (03:00→20:10)
[2020-09-18] MEDS: MEROPENEM 1 GM/50 ML 1 GM in Premix Bag 1 BAG IVPB SCH ×2 (04:00→16:34)
[2020-09-18 05:54] LABS: Mean Corpuscular HGB CONC 32.8 g/dL (32.0-36.0); Mean Corpuscular Hemoglobin 31.5 pg (27.0-31.0); Mean Corpuscular Volume 95.9 fL (78.0-98.0); Mean Platelet Volume 11.6 fL (7.4-10.4); Platelet Count 26 thou/uL (130-400); RBC Distribution Width 14.9 % (11.5-14.5); Red Blood Cell (RBC) Count 2.38 mill/uL (4.20-5.40); White Blood Cell (WBC) Count 52.5 thou/uL (4.8-10.8)
[2020-09-18 05:55] LABS: Lymphocytes 16 % (21-51); MDiff Complete? YES; Metamyelocyte 1 % (0-0); Monocytes 6 % (0-10); Neutrophil 68 % (42-75); Nucleated RBC 2 % (0); Platelet Morphology Comment Appears Decreased; Reactive Lymphocytes 9 % (0-10)
[2020-09-18 06:15] LABS: Hemoglobin 7.5 g/dL (12.0-16.0)
[2020-09-18 07:48] LABS: Actual Bicarbonate (HCO3a) 20.9 mEq/L (22-28); Calcium, Ionized (arterial) 0.89 mmol/L (1.12-1.30); Carboxyhemoglobin (COHb) 1.5 gm% (0.0-3.0); Hemoglobin (Hb) 8.2 g/dL (12.0-16.0); O2 Tension (PaO2), arterial 61.8 mmHg (> 80.0); pH, Arterial 7.37 (7.35-7.45)
[2020-09-18 07:49] LABS: Puncture Site Arterial Line
[2020-09-18] MEDS: Pantoprazole 40 MG VIAL IVP SCH ×2 (08:01→20:10)
[2020-09-18 08:25] LABS: ALT (SGPT) 302 U/L (8-55); AST (SGOT) 1774 U/L (5-34); Albumin 2.7 g/dL (3.4-4.8); Alkaline Phosphatase 227 U/L (40-110); Anion Gap 37 mmol/L (10-20); BUN (Urea Nitrogen) 58 mg/dL (9.8-20.1); Bilirubin, Total 3.9 mg/dL (0.2-1.2); Calc. Creatinine Clearance 35 mL/min (70-130); Calcium 7.3 mg/dL (7.8-10.44); Carbon Dioxide 20 mmol/L (23-31); Chloride 90 mmol/L (98-107); Globulin 1.4 g/dL (2.4-3.5); Glucose 145 mg/dL (80-115); Potassium 4.1 mmol/L (3.5-5.1); Protein, Total 4.1 g/dL (5.8-8.1); Sodium 143 mmol/L (136-145)
[2020-09-18 10:08] LABS: Vancomycin, Random 12.4 ug/mL (See Comment)
[2020-09-18] MEDS: Norepinephrine 16 MG in Dextrose 5% in Water 234 ML IVPB PRN ×2 (10:32→15:13)
[2020-09-18] MEDS: Albumin 25% 25 GM/100 ML BOT IVPB SCH ×3 (10:57→23:05)
[2020-09-18] MEDS ORDERED: Vecuronium 10 MG VIAL ONE (11:16)
[2020-09-18] MEDS: Vecuronium 10 MG VIAL IVP PRN ×2 (12:15→15:37)
[2020-09-18 12:50] LABS: Actual Bicarbonate (HCO3a) 17.2 mEq/L (22-28); Base Excess (BEa) -5.7 mEq/L (-2.0 to +3.0); CO2 Tension 26.2 mmHg (35.0-45.0); Calcium, Ionized (arterial) 0.89 mmol/L (1.12-1.30); Carboxyhemoglobin (COHb) 0.8 gm% (0.0-3.0); Hemoglobin (Hb) 10.9 g/dL (12.0-16.0); Potassium - ABG Lab 5.07 mmol/L (3.70-5.30); pH, Arterial 7.44 (7.35-7.45)
[2020-09-18 12:54] LABS: O2 Tension (PaO2), arterial 55.8 mmHg (> 80.0); Puncture Site Arterial Line
[2020-09-18 14:11] VITALS: BMI 34.8
[2020-09-18] MEDS: Vasopressin 20 UNIT, Admixture Fee 1 EACH in Sodium Chloride 0.9% 50 ML IV SCH (15:14)
[2020-09-18] MEDS: Micafungin 150 MG in Sodium Chloride 0.9% 100 ML IVPB SCH (18:24)
[2020-09-18 18:46] LABS: Actual Bicarbonate (HCO3a) 8.4 mEq/L (22-28); Base Excess (BEa) -21.2 mEq/L (-2.0 to +3.0); CO2 Tension 33.8 mmHg (35.0-45.0); Calcium, Ionized (arterial) 0.85 mmol/L (1.12-1.30); Carboxyhemoglobin (COHb) 0.7 gm% (0.0-3.0); Hemoglobin (Hb) 8.8 g/dL (12.0-16.0); O2 Tension (PaO2), arterial 69.1 mmHg (> 80.0); Potassium - ABG Lab 5.85 mmol/L (3.70-5.30)
[2020-09-18 18:53] LABS: Puncture Site Arterial Line; pH, Arterial 7.02 (7.35-7.45)
[2020-09-19] MEDS: Hydrocortisone Sod Succ/PF 100 mg/2 ml Vial IVP SCH (03:20)
[2020-09-19] MEDS: Sodium Bicarbonate 150 MEQ in Dextrose 5% in Water 1,000 ML IV SCH (03:23)
[2020-09-19] MEDS: EPINEPHrine 4 MG in Dextrose 5% in Water 250 ML IV SCH ×2 (03:24→06:13)
[2020-09-19] MEDS: MEROPENEM 1 GM/50 ML 1 GM in Premix Bag 1 BAG IVPB SCH (03:25)
[2020-09-19 03:46] VITALS: BP 175/46
[2020-09-19 04:19] VITALS: TEMP 97.5
[2020-09-19] MEDS: Albumin 25% 25 GM/100 ML BOT IVPB SCH (05:01)
[2020-09-19 06:25] LABS: Hemoglobin 5.7 g/dL (12.0-16.0); Mean Corpuscular HGB CONC 30.6 g/dL (32.0-36.0); Mean Corpuscular Hemoglobin 30.9 pg (27.0-31.0); Mean Platelet Volume 8.9 fL (7.4-10.4); Platelet Count 28 thou/uL (130-400); Red Blood Cell (RBC) Count 1.86 mill/uL (4.20-5.40); White Blood Cell (WBC) Count 59.2 thou/uL (4.8-10.8)
[2020-09-19 06:43] LABS: Band 24 % (5-11); Lymphocytes 3 % (21-51); MDiff Complete? YES; Metamyelocyte 10 % (0-0); Monocytes 13 % (0-10); Myelocyte 10 % (0-0); Neutrophil 36 % (42-75); Nucleated RBC 5 % (0); Platelet Morphology Comment Appears Decreased; Promyelocytes 3 % (0-0); Reflex for Review?? YES
[2020-09-19 06:44] LABS: ALT (SGPT) 1611 U/L (8-55); AST (SGOT) Greater than 3500 U/L (5-34); Albumin 3.3 g/dL (3.4-4.8); Alkaline Phosphatase 462 U/L (40-110); BUN (Urea Nitrogen) 33 mg/dL (9.8-20.1); Bilirubin, Total 5.8 mg/dL (0.2-1.2); Calc. Creatinine Clearance 33 mL/min (70-130); Calcium 6.4 mg/dL (7.8-10.44); Carbon Dioxide Less than 8 mmol/L (23-31); Chloride 82 mmol/L (98-107); Globulin 0.9 g/dL (2.4-3.5); Glucose 146 mg/dL (80-115); Potassium 8.6 mmol/L (3.5-5.1); Protein, Total 4.2 g/dL (5.8-8.1); Sodium 130 mmol/L (136-145)
[2020-09-19 07:00] LABS: Magnesium 2.4 mg/dL (1.6-2.6)
[2020-09-19 07:06] LABS: Phosphorus 15.1 mg/dL (2.3-4.7)
[2020-09-19 07:26] LABS: Base Excess (BEa) -26.1 mEq/L (-2.0 to +3.0); Calcium, Ionized (arterial) 0.73 mmol/L (1.12-1.30); Carboxyhemoglobin (COHb) 1.6 gm% (0.0-3.0); O2 Tension (PaO2), arterial 77.8 mmHg (> 80.0); Potassium - ABG Lab 8.72 mmol/L (3.70-5.30)
[2020-09-19 07:30] LABS: Hemoglobin (Hb) 5.1 g/dL (12.0-16.0); pH, Arterial 6.92 (7.35-7.45)
[2020-09-19 07:31] LABS: Puncture Site Arterial Line
== END 2020-09-19 13:35 | disposition expired | DRG 870 ==
LOC: ERS 13:11 → ERHOLD 16:08 → CCU 20:35
PROVIDERS: ADMIT Internal Medicine Critical Care Medicine; ATTEND Internal Medicine
PROC: 0JH63WZ Insertion of Totally Implantable Vascular Access Device into Chest Subcutaneous Tissue and Fascia, Percutaneous Approach (ICD-10-PCS; 2020-09-02)
PROC: 02HV33Z Insertion of Infusion Device into Superior Vena Cava, Percutaneous Approach (ICD-10-PCS; 2020-09-02)
PROC: 5A1955Z Respiratory Ventilation, Greater than 96 Consecutive Hours (ICD-10-PCS; principal; 2020-09-05)
PROC: 3E033XZ Introduction of Vasopressor into Peripheral Vein, Percutaneous Approach (ICD-10-PCS; 2020-09-05)
PROC: 02HV33Z Insertion of Infusion Device into Superior Vena Cava, Percutaneous Approach (ICD-10-PCS; 2020-09-07)
PROC: 30233N1 Transfusion of Nonautologous Red Blood Cells into Peripheral Vein, Percutaneous Approach (ICD-10-PCS; 2020-09-11)
PROC: 30233R1 Transfusion of Nonautologous Platelets into Peripheral Vein, Percutaneous Approach (ICD-10-PCS; 2020-09-12)
PROC: 04HY32Z Insertion of Monitoring Device into Lower Artery, Percutaneous Approach (ICD-10-PCS; 2020-09-17)
PROC: 5A1D70Z Performance of Urinary Filtration, Intermittent, Less than 6 Hours Per Day (ICD-10-PCS; 2020-09-18)
DX: A41.9 Sepsis, unspecified organism (principal); R65.21 Severe sepsis with septic shock; J96.01 Acute respiratory failure with hypoxia; I21.A1 Myocardial infarction type 2; J18.9 Pneumonia, unspecified organism; D61.810 Antineoplastic chemotherapy induced pancytopenia; E88.3 Tumor lysis syndrome; N17.0 Acute kidney failure with tubular necrosis; E87.2 Acidosis; N39.0 Urinary tract infection, site not specified; M62.82 Rhabdomyolysis; K92.2 Gastrointestinal hemorrhage, unspecified; J90 Pleural effusion, not elsewhere classified; R18.8 Other ascites; G89.29 Other chronic pain; J44.9 Chronic obstructive pulmonary disease, unspecified; M54.9 Dorsalgia, unspecified; G43.909 Migraine, unspecified, not intractable, without status migrainosus; M06.9 Rheumatoid arthritis, unspecified; F41.9 Anxiety disorder, unspecified; F43.10 Post-traumatic stress disorder, unspecified; I10 Essential (primary) hypertension; E78.5 Hyperlipidemia, unspecified; G40.909 Epilepsy, unspecified, not intractable, without status epilepticus; C50.911 Malignant neoplasm of unspecified site of right female breast; T45.1X5A Adverse effect of antineoplastic and immunosuppressive drugs, initial encounter; Z20.822 Contact with and (suspected) exposure to COVID-19; E87.5 Hyperkalemia; E83.51 Hypocalcemia; E79.0 Hyperuricemia without signs of inflammatory arthritis and tophaceous disease; E83.39 Other disorders of phosphorus metabolism; E87.70 Fluid overload, unspecified; I46.9 Cardiac arrest, cause unspecified; R53.81 Other malaise; Z92.21 Personal history of antineoplastic chemotherapy; Z90.49 Acquired absence of other specified parts of digestive tract; Z90.710 Acquired absence of both cervix and uterus; Z98.890 Other specified postprocedural states; Z90.11 Acquired absence of right breast and nipple; Z88.6 Allergy status to analgesic agent; Z79.891 Long term (current) use of opiate analgesic; Z79.899 Other long term (current) drug therapy; Z78.1 Physical restraint status; Z17.1 Estrogen receptor negative status [ER-]; E78.00 Pure hypercholesterolemia, unspecified; M81.0 Age-related osteoporosis without current pathological fracture; M19.90 Unspecified osteoarthritis, unspecified site
CPT/HCPCS: 0240U; 31500; 36415; 36416; 36430; 36556; 36600; 71045; 74018; 74176; 76705; 76770; 80048; 80053; 80074; 80076; 80202; 81001; 81003; 81015; 82306; 82533; 82550; 82553; 82570; 82805; 83605; 83615; 83735; 83880; 84100; 84156; 84300; 84443; 84484; 84550; 85007; 85025; 85027; 85049; 85060; 85300; 85362; 85379; 85384; 85610; 85730; 86704; 86706; 86803; 86850; 86900; 86901; 87040; 87070; 87076; 87086; 87205; 87340; 87449; 87522; 90935; 93005; 93010; 93306; 93970; 94002; 94003; 96361; 96365; 96366; 96367; 96368; 96374; 99292; C1788; C9113; G0257; J0171; J0690; J0692; J0696; J1447; J1642; J1644; J1720; J1940; J2001; J2060; J2185; J2248; J2250; J2270; J2405; J2704; J2765; J3010; J3370; J3411; J3490; J7050; J7070; P9016; P9035; P9047; S0020; S0028